=== PATIENT | female | born 1950 | race Caucasian/White ===

== ENCOUNTER 2018-03-23 19:16 | Inpatient (IN) | payer MEDICARE ==
--- NOTE | 2018-03-23 19:27 | ER Document Report ---
ED Neuro Symptoms/Deficit - General Chief Complaint: S/S of Possible Stroke Stated Complaint: POSSIBLE STROKE Time Seen by Provider: 03/23/18 19:26 Mode of Arrival: Medic Information source: Patient, Emergency Med Personnel, [facility] Records TRAVEL OUTSIDE OF THE [place] IN LAST 30 DAYS: No - HPI Patient complains to provider of: Other - 67-year-old woman presents for evaluation of weakness, facial droop, inability to move her right arms and leg and inability to feel her left arm and leg. She was found by neighbors after her was found wandering the neighborhood. There is an unknown last known normal time she is uncertain what time the symptoms started. Medications with this patient are Premarin as well as potassium. She denies any trauma, she denies any history of atrial fibrillation, denies any history of stroke in the past, no blood thinner use. Rest of history is limited secondary patient's dysarthria Past Medical History - General Information source: Patient, Emergency Med Personnel, [facility] Records Cannot obtain history due to: Altered mental status - Social History Smoking Status: Unknown if Ever Smoked Family History: None Review of Systems - Review of Systems -: Yes ROS unobtainable due to patient's medical condition Physical Exam - Vital signs Interpretation: Hypertensive - General General appearance: Anxious In distress: Mild - HEENT Head: Normocephalic, Other - Obvious facial droop with flattening of the nasolabial fold Extraocular movements intact: Yes Eyelashes: Normal Pupils: PERRL - Respiratory Respiratory status: No respiratory distress Chest status: Nontender Breath sounds: Normal Chest palpation: Normal - Cardiovascular Rhythm: Irregularly irregular Heart sounds: Normal auscultation Murmur: No - Abdominal Inspection: Normal Distension: No distension Tenderness: Nontender Organomegaly: No organomegaly - Back Back: Normal - Extremities General upper extremity: Other - 0 out of 5 strength right upper extremity 5 out of 5 strength left upper extremity General lower extremity: Other - 0 out of 5 strength right lower extremity 5 out of 5 strength left lower extremity Course - Re-evaluation Re-evalutation: This patient presented as a stroke activation from home with the last known normal that was unknown. She profound deficits, but was breathing spontaneously regarding appropriately made determination on emergent evaluation that patient was safe to transition to CT imaging. Accompany patient to CT scanner, performed an immediate NIH stroke scale and CT scan which is a 17 due to her profound deficits. Emergently called [facility] for consultation with neurologist, patient does not take any blood thinner, she does have an unknown last known well time. In discussion with Dr. PABLO who believes that patient should not be given TPA at this time. We will plan to obtain a CTA of the head as well as carotid arteries. Patient's also noted to be developing profound hypertension at this time, will initiate nicardipine infusion in case of intervention necessary. 03/23/18 20:06 [facility] neurologist discussed case Dr. Kincaid ALP again he has her CTA demonstrated what appears to be a left MCA territory lesion though the current symptoms seem to suggest a lower brainstem lesion. He declines at this time that the patient should undergo intervention or transport given the duration of symptoms of severity and her comorbidities. Given that she is on Premarin and is in atrial fibrillation which likely she developed an atrial clot. We will discuss this case with the on-call hospitalist for probable admission. Patient noted to be markedly tachycardic to the 120 range's, uptitrated patient' s nicardipine. Discussed case with on-call hospitalist who agrees at this time to admit this patient. Will defer administration of lytic therapy at this time given previously stated rationale. Patient will be admitted to the stepdown service for further management of symptoms and rate control. - Laboratory Result Diagrams: 03/23/18 22:32 03/23/18 19:28 Critical Care Note - Critical Care Note Total time excluding time spent on procedures (mins): 40 ED Alteplase Inc/Exc Criteria - Inclusion Criteria: 1: Patient presented to ED within 3 hours of acute ischemic stroke symptom onset ? -: No 2: Did baseline CT exclude intracranial hemorrhage and/or other risk factors? -: Yes 3: Is the age of the patient 18 years of age or greater? : If any of the above questions are answered "NO" then stop, patient is not a candidate for Alteplase, : If all of the above questions are answered "YES" then continue with Exclusion Criteria. - Exclusion Criteria: 1: Is there evidence of intracranial hemorrhage on baseline CT? -: No 2: Is there suspicion of subarachnoid hemorrhage (even if CT negative)? -: No 3: Is there a history of serious head trauma, recent previous stroke or CA within 3 months? -: No 4: Does the patient have a clinical presentation consistent with CA or post-CA pericarditis? 5: Is there history of intracranial hemorrhage? 6: On repeated measurement is Systolic BP greater than 185mmHg or Diastolic BP greater that 110 mmHg and is aggressive treatment needed to reduce blood pressure to these limits (e.g. constant infusion of an anti-hypertensive)? 7: Did the patient awake with stroke symptoms? 8: Has the patient had a lumbar puncture or an arterial puncture at a non- compressile site within 7 days? 9: With in the last 14 days did the patient have surgery or major trauma? 10: Is the patient or less than 2 weeks? 11: Was there any active bleeding or acute trauma? 12: Does the patient have intracranial neoplasm, arteriovenous malformation or aneurysm? 13: Does the patient have abnormal glucose (less than 50 or greater than 400mg/ dl)? Record glucose in Comment. 14: Patient has rapidly improving symptoms at the time Alteplase is to be Administered. 15: Does the patient have any risks for bleeding, including but not limited to: a.: Current use of Coumadin with PT greater than 15 seconds or INR greater than 1.7. b.: Current use of Pradaxa (Dabigatran). c.: Heparin administereed within the past 48 hours and PTT elevated. d.: Platelet count less than 100,000/mm. e.: Major surgery or serious trauma within 14 days. f.: Gastrointestinal or gynecological urinary bleeding within 14 days. g.: Myocardial Infarction (CA) within 3 months. : If the answer to any of the above questions is "YES" then stop, the patient is not a candidate for Alteplase. : If the answer to all of the above questions is "NO" then the patient may be eligible for the Administration of Alteplase. : If the patient is noted to have seizure activity at onset of Stroke symptoms; Consult Neurologist for further evaluation. - The patient is: -: Included and is eligible to receive Alteplase. *Initiate bed placement at higher level of care* --: No Reviewed risks & benefits of thrombolytic therapy: I have reviewed the risks and benefits of thrombolytic therapy with the patient and/or his/her family. -: Excluded and not eligible to receive Alteplase for the above exclusions. -: Excluded and not eligible to receive Alteplase for other reasons (specify in comments): - Diagnosis of TIA: -: Patient presented with transient symptoms that are now resolved and no other neurologic findings are currently present. List symptoms in comments. -: Patient is NOT a candidate for tPA. -: ____(put name in comment) has been consulted for admission and continued evaluation of risk factor assessment. ED NIH Stroke Scale - NIH Stroke Scale When completed:: Before Alteplase *: 1. NIH scale should be completed with appropriate accompanying assessment tools. *: 2. The NIH should reflect what the patient is capable of doing and should not be coached by the clinician. 1a. Level of Consciousness: 0=Alert;keenly responsive -: 1=Drowsy -: 2=Obtunded -: 3=Coma/unresponsive or reflex to noxious stimuli. 1a. Responses: 1 1b. Orientation Questions: a. What month is it? -: b. How old are you? -: 0=Answers both questions correctly. -: 1=Answers one question correctly or patient is intubated or has orotracheal trauma. -: 2=Answers neither question correctly. 1b. Responses: 1 1c. Response to commands: a. Open and close eyes? -: b. Ct Technologist and release hand? -: Credit is given despite weakness. Demonstration of task is permitted. Substitute command if hands cannot be used. -: 0=Performs both tasks correctly -: 1=Performs one task correctly -: 2=Performs neither task correctly 1c. Responses: 0 2. Gaze: Establish eye contact and instruct patient to "Follow my finger" -: 0=Normal -: 1=Partial gaze palsy. Gaze is abnormal in one or both eyes, but where forced deviation or total gaze paresis is not present. -: 2=Forced deviation or total gaze paresis. 2. Responses: 0 3. Visual Zheng: Sees fingers in all four quadrants. -: 0=No visual loss. -: 1=Partial hemianopsia. -: 2=Complete hemianopsia. -: 3=Bilateral hemianopsia (including Cortical blindness) 3. Responses: 0 4. Facial Movement: Instruct patient to: -: a. Show me your teeth -: b. Raise your eyebrows -: c. Close your eyes -: d. Smile -: 0=Normal symmetrical movement -: 1=Minor paralysis (flattened nasolabial fold, asymmetry on smiling). -: 2=Partial paralysis (total or near total paralysis of lower face). -: 3=Complete paralysis of upper and lower face 4. Responses: 2 5. Motor functions (left arm): Alternate sides and extend each arm with palms down (90 degrees if sitting or 45 degrees for supine). -: 0=No drift;limb holds for full 10 seconds. -: 1=Drift; limb holds but drifts down before full 10 seconds, but does not hit bed. -: 2=Some effort against gravity; limb cannot get to or maintain position. -: 3=No effort against gravity; limb falls. -: 4=No movement. -: UN=Amputation, joint fusion, explain in comments. 5. Responses (left arm): 0 5. Motor Functions (right arm): Alternate sides and extend each arm with palms down (90 degrees if sitting or 45 degrees for supine). -: 0=No drift;limb holds for full 10 seconds. -: 1=Drift; limb holds but drifts down before full 10 seconds, but does not hit bed. -: 2=Some effort against gravity; limb cannot get to or maintain position. -: 3=No effort against gravity; limb falls. -: 4=No movement. -: UN=Amputation, joint fusion, explain in comments. 5. Responses (right arm): 4 6. Motor Functions (left leg): With patient lying supine, alternate sides and extend each leg (30 degrees always while supine). -: 0=No drift, leg holds position for full 5 seconds -: 1=Drift; leg falls before full 5 seconds but does not hit bed. -: 2=Some effort against gravity, leg falls to bed but some effort against gravity. -: 3=No effort against gravity, leg falls to bed immediately. -: 4=No movement. -: UN=Amputation, joint fusion; explain in comments. 6. Responses (left leg): 0 6. Motor Functions (right leg): With patient lying supine, alternate sides and extend each leg (30 degrees always while supine). -: 0=No drift, leg holds position for full 5 seconds -: 1=Drift; leg falls before full 5 seconds but does not hit bed. -: 2=Some effort against gravity, leg falls to bed but some effort against gravity. -: 3=No effort against gravity, leg falls to bed immediately. -: 4=No movement. -: UN=Amputation, joint fusion; explain in comments. 6. Responses (right leg): 4 7. Limb Ataxia: With eyes open instruct patient to: -: a. "Touch your finger to your nose". -: b. "Touch your heel to your grissom" -: 0=Absent -: 1=Present in one limb. -: 2=Present in two limbs. -: UN=Amputation or joint fusion; explain in comments. 7. Responses: 1 7. If ataxia present choose as appropriate: Right leg 8. Sensory: Test sensation using pinprick or noxious stimuli. Test as many body parts as possible. -: 0=Normal;no sensory loss -: 1=Mile to moderate sensory loss (patient feels pin prick but is less sharp on affected side). -: 2=Severe or total sensory loss. 8. Responses: 2 9. Best Language: Instruct patient to: -: a. "Describe what you see in this picture." -: b. "Name the items in this picture." -: c. "Read these sentences." -: 0=No aphasia, normal -: 1=Mild to moderate aphasia. -: 2=Severe aphasia -: 3=Mute, global aphasia, no usable speech or auditory comprehension. 9. Responses: 1 10. Articulation, Dysarthia: Instruct patient to: -: "Read these words" or "Repeat these words" -: 0=Normal -: 1=Mild to moderate; patient may slur some words but can be understood without difficulty. -: 2=Severe; patients speech so slurred as to be unintelligible in the absence of dysphasia. -: UN=Intubated or other physical barrier, explain in comments. 10. Responses: 2 11. Extinction or inattention: 0=No abnormality -: 1= Visual, tactile, auditory, spatial, or personal inattention or extinction to bilateral simulation in one or the sensory modalities. -: 2=Profound zakia-inattention or zakia-inattention to more than one modality; does not recognize own hand. 11. Responses: 0 Total Score: 18 Discharge - Discharge Clinical Impression: Atrial fibrillation with RVR CVA (cerebral vascular accident) Qualifiers: CVA mechanism: embolism Precerebral and cerebral artery: unspecified precerebral artery Qualified Code(s): I63.10 - Cerebral infarction due to embolism of unspecified precerebral artery Afib Qualifiers: Atrial fibrillation type: unspecified Qualified Code(s): I48.91 - Unspecified atrial fibrillation Condition: Serious Disposition: ADMITTED INPATIENT Admitting Provider: Hospitalist Unit Admitted: IMCU Referrals: SUSAN MCMILLAN MD [HONORARY] - Follow up as needed
[2018-03-23 19:37] LABS: ABSOLUTE BASOPHILS # (AUTO) 0.1 10^3/uL (0.0-0.2); ABSOLUTE EOSINOPHILS # (AUTO) 0.2 10^3/uL (0.0-0.6); ABSOLUTE LYMPHOCYTES (AUTO) 1.2 10^3/uL (0.5-4.7); ABSOLUTE MONOCYTES (AUTO) 0.5 10^3/uL (0.1-1.4); ABSOLUTE NEUT (AUTO) 6.6 10^3/uL (1.7-8.2); BASOPHILS % (AUTO) 0.6 % (0-2); EOSINOPHILS % (AUTO) 2.1 % (0-6); HEMATOCRIT 39.5 % (36.0-47.0); HEMOGLOBIN 13.5 g/dL (12.0-15.5); LYMPHOCYTES % (AUTO) 13.8 % (13-45); MEAN CORPUSCULAR HEMOGLOBIN 30.3 pg (27.0-33.4); MEAN CORPUSCULAR HGB CONC 34.2 g/dL (32.0-36.0); MEAN CORPUSCULAR VOLUME 89 fl (80-97); MONOCYTES % (AUTO) 5.4 % (3-13); PLATELET COUNT 253 10^3/uL (150-450); RED BLOOD COUNT 4.46 10^6/uL (3.72-5.28); RED CELL DISTRIBUTION WIDTH 13.3 % (11.5-14.0); SEGMENTED NEUTROPHILS % (AUTO) 78.1 % (42-78); TOTAL CELLS COUNTED % (AUTO) 100 %; WHITE BLOOD COUNT 8.5 10^3/uL (4.0-10.5)
[2018-03-23 19:41] LABS: INTERNATIONAL RATION (INR) 0.99; PROTHROMBIN TIME 13.6 SEC (11.4-15.4)
[2018-03-23 19:42] LABS: PARTIAL THROMBOPLASTIN TIME 26.9 SEC (23.5-35.8)
--- NOTE | 2018-03-23 19:46 | RADIOLOGY REPORT (SQ) ---
EXAM DESCRIPTION: CT HEAD WITHOUT COMPLETED DATE/TIME: 03/23/2018 7:23 pm REASON FOR STUDY: bed 2 stroke alert COMPARISON: None. TECHNIQUE: Axial images acquired through the brain without intravenous contrast. Images reviewed wi th bone, brain and subdural windows. Additional sagittal and coronal reconstructions were generated. Images stored on PACS. All CT scanners at this facility use dose modulation, iterative reconstruction, and/or weight based d osing when appropriate to reduce radiation dose to as low as reasonably achievable (ALARA). [facility]: Dose Right [facility]: CareDose [facility]: Dose Right [facility]: Teradose 4D [facility]: [employer] RADIATION DOSE: CT Rad equipment meets quality standard of care and radiation dose reduction techniq ues were employed. CTDIvol: 55.2 mGy. DLP: 1029 mGy-cm. mGy. LIMITATIONS: None. FINDINGS: VENTRICLES: Normal size and contour. CEREBRUM: No masses. No hemorrhage. No midline shift. No evidence for acute infarction. Normal gra y/white matter differentiation. No areas of low density in the white matter. CEREBELLUM: No masses. No hemorrhage. No alteration of density. No evidence for acute infarction. EXTRAAXIAL SPACES: No fluid collections. No masses. ORBITS AND GLOBE: No intra- or extraconal masses. Normal contour of globe without masses. CALVARIUM: No fracture. PARANASAL SINUSES: No fluid or mucosal thickening. SOFT TISSUES: No mass or hematoma. OTHER: No other significant finding. IMPRESSION: NORMAL BRAIN CT WITHOUT CONTRAST. EVIDENCE OF ACUTE STROKE: NO. COMMENT: Findings were discussed with Dr. Nugent at 1941 hours on this date. Quality ID # [id number]: Final reports with documentation of one or more dose reduction techniques (e.g., Au tomated exposure control, adjustment of the mA and/or kV according to patient size, use of iterative reconstruction technique) TECHNICAL DOCUMENTATION: JOB ID: [id number] [employer]- All Rights Reserved Reading location - IP/workstation name: [email or web address]
--- NOTE | 2018-03-23 19:47 | RADIOLOGY REPORT (SQ) ---
EXAM DESCRIPTION: CHEST SINGLE VIEW COMPLETED DATE/TIME: 03/23/2018 7:30 pm REASON FOR STUDY: bed 2 stroke alert COMPARISON: 06/01/2007 EXAM PARAMETERS: NUMBER OF VIEWS: One view. TECHNIQUE: Single frontal radiographic view of the chest acquired. RADIATION DOSE: NA LIMITATIONS: None. FINDINGS: LUNGS AND PLEURA: No opacities, masses or pneumothorax. No pleural effusion. MEDIASTINUM AND HILAR STRUCTURES: No masses. Contour normal. HEART AND VASCULAR STRUCTURES: Cardiomegaly. No pulmonary edema. BONES: No acute findings. HARDWARE: None in the chest. OTHER: No other significant finding. IMPRESSION: Cardiomegaly without pulmonary edema. TECHNICAL DOCUMENTATION: JOB ID: [id number] [employer]- All Rights Reserved Reading location - IP/workstation name: [email or web address]
[2018-03-23 19:53] LABS: ALANINE AMINOTRANSFERASE 25 U/L (9-52); ALBUMIN 4.5 g/dL (3.5-5.0); ALKALINE PHOSPHATASE 122 U/L (38-126); ANION GAP 11 (5-19); ASPARTATE AMINO TRANSFERASE 25 U/L (14-36); BILIRUBIN,DIRECT 0.5 mg/dL (0.0-0.4); BLOOD UREA NITROGEN 11 mg/dL (7-20); CALCIUM 9.8 mg/dL (8.4-10.2); CARBON DIOXIDE 27 mmol/L (22-30); CHLORIDE 98 mmol/L (98-107); CREATINE KINASE 163 U/L (30-135); GLUCOSE 117 mg/dL (75-110); POTASSIUM 4.6 mmol/L (3.6-5.0); SODIUM 135.6 mmol/L (137-145); TOTAL PROTEIN 7.3 g/dL (6.3-8.2)
[2018-03-23 20:03] LABS: CREATINE KINASE MB 3.11 ng/mL (<4.55)
[2018-03-23 20:06] LABS: TROPONIN I < 0.012 ng/mL
--- NOTE | 2018-03-23 20:46 | RADIOLOGY REPORT (SQ) ---
EXAM DESCRIPTION: CTA HEAD COMPLETED DATE/TIME: 03/23/2018 8:34 pm REASON FOR STUDY: query large vessel occlusion COMPARISON: None. TECHNIQUE: Post IV contrast scanning, thin section axial imaging through the brain to evaluate the a rterial structures. Source and MIP images are saved and reviewed on PACS. Advanced 3D imaging as volume-rendering, MIPs, SSD performed? yes All CT scanners at this facility use dose modulation, iterative reconstruction, and/or weight based d osing when appropriate to reduce radiation dose to as low as reasonably achievable (ALARA). [facility]: Dose Right [facility]: CareDose [facility]: Dose Right [facility]: Teradose 4D [facility]: [employer] CONTRAST TYPE AND DOSE: contrast/concentration: Isovue 350.00 mg/ml; Total Contrast Delivered: 70.0 ml; Total Saline Delivered: 75.0 ml RENAL FUNCTION: BUN 11 creatinine 0.84 LIMITATIONS: None. FINDINGS: [place] OF CHILD: There appears to be at least partial occlusion of the left middle cerebr al artery. Some of the distal branches of the middle cerebral artery are opacified. See image 105 s eries 3. See image 42 series 204. POSTERIOR CIRCULATION: The distal vertebral arteries are patent as is the basilar artery. No aneurysm . BRAIN: No gross enhancing lesions as visualized. The superior cerebral hemispheres are not included in the field of view. BONES: Intact as visualized. SINUSES: No fluid or mucosal thickening. OTHER: No other significant finding. 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 TECHNICAL DOCUMENTATION: JOB ID: [id number] Quality ID # [id number]: Final reports with documentation of one or more dose reduction techniques (e.g., Au tomated exposure control, adjustment of the mA and/or kV according to patient size, use of iterative reconstruction technique) 2010 [employer]- All Rights Reserved Reading location - IP/workstation name: [email or web address]
--- NOTE | 2018-03-23 20:50 | RADIOLOGY REPORT (SQ) ---
EXAM DESCRIPTION: CTA NECK COMPLETED DATE/TIME: 03/23/2018 8:34 pm REASON FOR STUDY: stroke COMPARISON: None. TECHNIQUE: Axial dynamic scanning technique with dynamic contrast enhancement through the extra-crane oiler nial carotid and vertebral arteries. Multiplanar reconstruction. 3-D MIPS and Volume-rendered imag es acquired at the workstation and saved to PACS. Images are reviewed in soft tissue, bone, lung w indows. All CT scanners at this facility use dose modulation, iterative reconstruction, and/or weight based d osing when appropriate to reduce radiation dose to as low as reasonably achievable (ALARA). [facility]: Dose Right [facility]: CareDose [facility]: Dose Right [facility]: Teradose 4D [facility]: [employer] CONTRAST TYPE AND DOSE: 70 mL Omnipaque 350- low osmolar. RENAL FUNCTION: BUN 11 creatinine 0.8 LIMITATIONS: None. FINDINGS: AORTIC ARCH: The left carotid appears to arise from the brachiocephalic trunk. RIGHT CAROTIDS: Patent common, internal and external carotid arteries without suggestion of significa nt stenosis or irregular plaque. No dissection. RIGHT VERTEBRAL: Patent. No dissection. LEFT CAROTIDS: Patent common, internal and external carotid arteries without suggestion of significan t stenosis or irregular plaque. No dissection. LEFT VERTEBRAL: Patent. No dissection. OTHER: No other significant finding. OTHER: 3-D reconstructions confirm findings. IMPRESSION: The left carotid artery appears to arise from the brachiocephalic trunk. No significant carotid occlusion is seen. COMMENT: Quality ID #[id number]: Measurements of distal internal carotid diameter were used as the denomina tor for stenosis measurement. TECHNICAL DOCUMENTATION: JOB ID: [id number] Quality ID # 436: Final reports with documentation of one or more dose reduction techniques (e.g., Au tomated exposure control, adjustment of the mA and/or kV according to patient size, use of iterative reconstruction technique) 2010 [employer]- All Rights Reserved Reading location - IP/workstation name: [email or web address]
[2018-03-23] MEDS ORDERED: METOPROLOL TARTRATE PF/INJ 5 MG/5 ML SDV IV ONE (21:03)
[2018-03-23] MEDS ORDERED: LABETALOL HCL INJ 20 MG/4 ML DISP.SYRIN IV ONE (21:04)
[2018-03-23] MEDS ORDERED: NICARDIPINE HCL RTU, ISO-OS 20 MG/200 ML RTUINJ IV ONE (21:12)
[2018-03-23] MEDS ORDERED: NICARDIPINE HCL RTU, ISO-OS 20 MG/200 ML RTUINJ IV PRN (21:14)
[2018-03-23] MEDS ORDERED: HEPARIN SODIUM,PORCINE/D5W 25,000 UNIT/250 ML RTUINJ IV PRN (21:30)
[2018-03-23] MEDS ORDERED: ATORVASTATIN CALCIUM 80 MG TABLET PO ONE (22:20)
[2018-03-23] MEDS ORDERED: HEPARIN SOD (PORCINE) 1,000 UNIT/ML 10 ML VIAL IV ONE (22:20)
[2018-03-23 22:43] LABS: ABSOLUTE EOSINOPHILS # (AUTO) 0.1 10^3/uL (0.0-0.6); ABSOLUTE MONOCYTES (AUTO) 0.5 10^3/uL (0.1-1.4); ABSOLUTE NEUT (AUTO) 8.4 10^3/uL (1.7-8.2); BASOPHILS % (AUTO) 0.5 % (0-2); EOSINOPHILS % (AUTO) 0.9 % (0-6); HEMATOCRIT 40.1 % (36.0-47.0); HEMOGLOBIN 13.8 g/dL (12.0-15.5); MEAN CORPUSCULAR HEMOGLOBIN 30.6 pg (27.0-33.4); MEAN CORPUSCULAR HGB CONC 34.5 g/dL (32.0-36.0); MEAN CORPUSCULAR VOLUME 89 fl (80-97); MONOCYTES % (AUTO) 5.4 % (3-13); PLATELET COUNT 262 10^3/uL (150-450); RED BLOOD COUNT 4.52 10^6/uL (3.72-5.28); RED CELL DISTRIBUTION WIDTH 13.2 % (11.5-14.0); SEGMENTED NEUTROPHILS % (AUTO) 83.2 % (42-78); TOTAL CELLS COUNTED % (AUTO) 100 %; WHITE BLOOD COUNT 10.1 10^3/uL (4.0-10.5)
[2018-03-23 22:47] LABS: INTERNATIONAL RATION (INR) 0.99; PROTHROMBIN TIME 13.6 SEC (11.4-15.4)
[2018-03-23 22:48] LABS: PARTIAL THROMBOPLASTIN TIME 29.4 SEC (23.5-35.8)
[2018-03-23] MEDS: ATORVASTATIN CALCIUM 80 MG TABLET PO SCH (23:04)
[2018-03-24] MEDS ORDERED: HEPARIN SOD (PORCINE) 1,000 UNIT/ML 10 ML VIAL IV PRN (00:30)
[2018-03-24 00:40] LABS: CREATINE KINASE MB 3.12 ng/mL (<4.55); TROPONIN I < 0.012 ng/mL
[2018-03-24] MEDS: METOPROLOL TARTRATE PF/INJ 5 MG/5 ML SDV IV PRN (04:38)
[2018-03-24 04:49] LABS: HEMATOCRIT 40.2 % (36.0-47.0); HEMOGLOBIN 13.9 g/dL (12.0-15.5); MEAN CORPUSCULAR HEMOGLOBIN 30.5 pg (27.0-33.4); MEAN CORPUSCULAR HGB CONC 34.6 g/dL (32.0-36.0); MEAN CORPUSCULAR VOLUME 88 fl (80-97); PLATELET COUNT 247 10^3/uL (150-450); RED BLOOD COUNT 4.55 10^6/uL (3.72-5.28); RED CELL DISTRIBUTION WIDTH 13.1 % (11.5-14.0)
[2018-03-24] MEDS ORDERED: DILTIAZEM HCL/D5W 125 MG/125 ML RTUINJ IV PRN (04:49)
--- NOTE | 2018-03-24 05:00 | PDOC H&P ---
History of Present Illness Admission Date/PCP: 03/23/18 23:19 Patient complains of: Right-sided weakness and difficulty with speech History of Present Illness: SCOTTY MCLEOD is a 67 year old female with unclear past medical history who is found by neighbors on the ground with difficulty with speech, Facial droop, right arm and leg weakness, left arm and leg numbness. Her with dementia was found confused walking alone in the neighborhood. They are both brought to the emergency room. She is found to have persistent symptoms as above and atrial fibrillation with RVR. Initial imaging is unremarkable. Given the unclear time of onset she is not a candidate for thrombolytics and is referred to the hospitalist for admission. She denies history of palpitations, chest pain or shortness of breath. Additional history is limited secondary to severe expressive aphasia. Past Medical History Cardiac Medical History: Reports: Hyperlipidema, Hypertension Social History Information Source: Patient, Emergency Med Personnel Lives with: Spouse/Significant other Smoking Status: Never Smoker Frequency of Alcohol Use: None Hx Recreational Drug Use: No Drugs: None Hx Prescription Drug Abuse: No - Advance Directive Resuscitation Status: Full Code Family History Family History: Other - Unobtainable Parental Family History Reviewed: Yes Children Family History Reviewed: Yes Sibling(s) Family History Reviewed.: Yes Review of Systems ROS unobtainable: Other - Unobtainable secondary to expressive aphasia Physical Exam Vital Signs: Temp Pulse Resp BP Pulse Ox 98.3 F 123 H 21 H 155/99 H 100 03/24/18 03:04 03/24/18 03:06 03/24/18 03:06 03/24/18 03:06 03/24/18 03:06 General appearance: PRESENT: cooperative, disheveled, severe distress Head exam: PRESENT: atraumatic, normocephalic Eye exam: PRESENT: conjunctiva pink, EOMI, PERRLA. ABSENT: scleral icterus Ear exam: PRESENT: normal external ear exam Mouth exam: PRESENT: moist, tongue midline Neck exam: ABSENT: carotid bruit, JVD, lymphadenopathy, thyromegaly Respiratory exam: PRESENT: clear to auscultation jose, tachypnea. ABSENT: rales , rhonchi, wheezes Cardiovascular exam: PRESENT: irregular rhythm, +S1, +S2, tachycardia. ABSENT: bradycardia, clicks, gallop Pulses: PRESENT: normal dorsalis pedis pul Vascular exam: PRESENT: normal capillary refill GI/Abdominal exam: PRESENT: normal bowel sounds, soft. ABSENT: distended, guarding, mass, organolmegaly, rebound, tenderness Rectal exam: PRESENT: deferred Extremities exam: PRESENT: full ROM, other - Bruising of all 4 extremities. ABSENT: calf tenderness, clubbing, pedal edema Musculoskeletal exam: PRESENT: other - Ecchymosis of all 4 extremities. ABSENT : ambulatory, deformity, dislocation Neurological exam: PRESENT: alert, altered, awake, oriented to person, oriented to place, CN II-XII grossly intact, motor sensory deficit, aphasic - Expressive. ABSENT: oriented to time, oriented to situation Psychiatric exam: PRESENT: appropriate affect, normal mood. ABSENT: homicidal ideation, suicidal ideation Skin exam: PRESENT: dry, intact, warm. ABSENT: cyanosis, rash Results Laboratory Results: 03/24/18 03:43 03/24/18 03:43 WBC 10.0 RBC 4.55 Hgb 13.9 Hct 40.2 MCV 88 MCH 30.5 MCHC 34.6 RDW 13.1 Plt Count 247 Impressions: Chest X-Ray 03/23/18 19:17 IMPRESSION: Cardiomegaly without pulmonary edema. Head CT 03/23/18 19:17 IMPRESSION: NORMAL BRAIN CT WITHOUT CONTRAST. EVIDENCE OF ACUTE STROKE: NO. Head CTA 03/23/18 20:01 IMPRESSION: There appears to be least partial occlusion of the left middle cerebral artery as described. Neck CTA 03/23/18 20:12 IMPRESSION: The left carotid artery appears to arise from the brachiocephalic trunk. No significant carotid occlusion is seen. Assessment & Plan - Diagnosis (1) Atrial fibrillation with RVR Is this a current diagnosis for this admission?: Yes Plan: IMCU admission, IV Cardizem, heparin protocol. Follow-up cardiac enzymes and 2D echo. (2) CVA (cerebral vascular accident) Qualifiers: CVA mechanism: embolism Precerebral and cerebral artery: unspecified precerebral artery Qualified Code(s): I63.10 - Cerebral infarction due to embolism of unspecified precerebral artery Is this a current diagnosis for this admission?: Yes Plan: CVA care set, permissive hypertension, follow-up MRI, echocardiogram and carotid Doppler. - Time Time Spent: 50 to 70 Minutes - Inpatient Certification Medical Necessity: Need Close Monitoring Due to Risk of Patient Decompensation
[2018-03-24 05:04] LABS: ANION GAP 14 (5-19); BLOOD UREA NITROGEN 8 mg/dL (7-20); CALCIUM 9.8 mg/dL (8.4-10.2); CARBON DIOXIDE 24 mmol/L (22-30); CHLORIDE 98 mmol/L (98-107); CHOLESTEROL 197.62 mg/dL (0-200); GLUCOSE 118 mg/dL (75-110); POTASSIUM 4.4 mmol/L (3.6-5.0); SODIUM 135.8 mmol/L (137-145); TRIGLYCERIDES 77 mg/dL (<150)
[2018-03-24 05:10] LABS: CREATINE KINASE MB 2.54 ng/mL (<4.55)
[2018-03-24 05:14] LABS: DIRECT LDL 119 mg/dL (<100); TROPONIN I < 0.012 ng/mL
[2018-03-24] MEDS ORDERED: DILTIAZEM HCL/D5W 125 MG/125 ML RTUINJ IV ONE (05:26)
[2018-03-24] MEDS: NORMAL SALINE 1000 ML 1,000 ML IV PRN ×2 (05:32→10:06)
--- NOTE | 2018-03-24 07:55 | EKG REPORT ---
SEVERITY:- ABNORMAL ECG - ATRIAL FLUTTER, A-RATE 294 MULTIFORM VENTRICULAR PREMATURE COMPLEXES LOW VOLTAGE IN FRONTAL LEADS CONSIDER ANTEROSEPTAL INFARCT : Confirmed by: Savi Wells MD 24-Mar-2018 07:55:08
[2018-03-24] MEDS ORDERED: ASPIRIN 300 MG SUPP, RECTAL PR SCH (10:00)
[2018-03-24 10:33] LABS: CREATINE KINASE MB 2.74 ng/mL (<4.55)
[2018-03-24 10:36] LABS: TROPONIN I < 0.012 ng/mL
[2018-03-24] MEDS: OXYCODONE HCL IR 5 MG TABLET PO SCH ×2 (12:25→21:08)
[2018-03-24] MEDS: DILTIAZEM HCL 30 MG TABLET PO SCH ×3 (12:32→23:51)
[2018-03-24] MEDS ORDERED: ASPIRIN 81 MG TABLET, CHEWABLE PO ONE (12:40)
--- NOTE | 2018-03-24 14:01 | Physician Advisory Note ---
Physician Advisor ProgressNote .: Pursuant to the plan for [facility], I have reviewed the medical record for this patient. Physician Advisor Statement: Please consider documenting, if you agree: 1. "Acute Lt MCA embolic CVA with cerebral infarction, with Rt dominant hemiparesis, [resolved or improved or persistent] & dysphagia [resolved or improved or persistent]" & receptive/expressive aphasia [resolved or improved or persistent]" 2. H&P indicates pt's CN II-XII intact, but that pt had facial droop - please clarify this potential contradiction in documentation. Thanks! CK
[2018-03-24] MEDS: APIXABAN 5 MG TABLET PO SCH ×2 (14:17→21:08)
[2018-03-24] MEDS: LORAZEPAM 0.5 MG TABLET PO SCH ×2 (14:17→21:08)
[2018-03-24] MEDS: FLUTICASONE NASAL SPRAY 50 MCG/SPRY 120 SPRAY/16 GM NASL SCH (14:18)
[2018-03-24 18:54] LABS: PROTHROMBIN TIME 15.8 SEC (11.4-15.4)
[2018-03-24 18:55] LABS: PARTIAL THROMBOPLASTIN TIME 31.1 SEC (23.5-35.8)
[2018-03-24] MEDS ORDERED: LORAZEPAM 0.5 MG TABLET PO PRN (19:29)
--- NOTE | 2018-03-24 19:33 | PDOC PROGRESS REPORT ---
Subjective Progress Note for:: 03/24/18 Subjective:: The patient is a 67-year-old female with a limited past medical history secondary to expressive aphasia, but known to have chronic pain with opiate dependence, benzodiazepine dependence, hyperlipidemia and hypertension who was admitted 03/23/18 with left MCA distribution CVA. The patient was seen on morning rounds with her present and seen again this afternoon when her son arrived. The patient appears to have improved significantly from the time of admission by the [employer] Sewing Machine Operator. The patient has passed her swallow evaluation and although continues to have expressive aphasia , is conversational and able to express her needs. She denies headache, dizziness, blurred vision, chest pain, palpitations, dyspnea, orthopnea, orthopedic pain (worse than her baseline), abdominal pain, nausea or vomiting. She has no questions or concerns. The son is understandably distressed by the patient's CVA; he is able to care for his father who has been taken home by his and son. He has many questions with regard to obtaining assistance in caring for both of his parents. He does request to speak with discharge planning has no other specific questions at this time. No concerns per nursing. Reason For Visit: ACUTE CVA AFIB Physical Exam Vital Signs: Temp Pulse Resp BP Pulse Ox 98.6 F 101 H 17 169/84 H 98 03/24/18 15:16 03/24/18 16:00 03/24/18 16:00 03/24/18 16:00 03/24/18 16:00 Intake & Output 03/23/18 03/24/18 03/25/18 06:59 06:59 06:59 Intake Total 65 1418 Balance 65 1418 Weight 88.6 kg General appearance: PRESENT: no acute distress, cooperative, well-developed, well-nourished - Overweight Head exam: PRESENT: atraumatic, normocephalic Eye exam: PRESENT: conjunctiva pink, EOMI, PERRLA. ABSENT: scleral icterus Ear exam: PRESENT: normal external ear exam Mouth exam: PRESENT: moist, tongue midline Neck exam: ABSENT: carotid bruit, JVD, lymphadenopathy, thyromegaly Respiratory exam: PRESENT: clear to auscultation jose, symmetrical, unlabored. ABSENT: rales, rhonchi, wheezes Cardiovascular exam: PRESENT: irregular rhythm, +S1, +S2. ABSENT: diastolic murmur, rubs, systolic murmur Pulses: PRESENT: normal dorsalis pedis pul Vascular exam: PRESENT: normal capillary refill GI/Abdominal exam: PRESENT: normal bowel sounds, soft. ABSENT: distended, guarding, mass, organolmegaly, rebound, tenderness Rectal exam: PRESENT: deferred Extremities exam: PRESENT: full ROM. ABSENT: calf tenderness, clubbing, pedal edema Musculoskeletal exam: PRESENT: other - Kyphosis Neurological exam: PRESENT: alert, awake, oriented to person, CN II-XII grossly intact - Slight right-sided weakness; upper greater than lower extremity. Slight slurred speech with continued expressive aphasia, no facial droop noted at this time., other - The patient is alert and oriented x4; although has expressive aphasia with slight slurred speach and stutter. She was unable to state hospital, but appropriately named [place]. Unable to state year, but able to identify [employer] (self corrected from [place]). Follows all comands.. ABSENT: motor sensory deficit Psychiatric exam: PRESENT: appropriate affect, normal mood. ABSENT: homicidal ideation, suicidal ideation Skin exam: PRESENT: dry, intact, warm. ABSENT: cyanosis, rash Results Laboratory Results: 03/24/18 03:43 03/24/18 03:43 03/24/18 03/24/18 03:43 03:43 WBC 10.0 RBC 4.55 Hgb 13.9 Hct 40.2 MCV 88 MCH 30.5 MCHC 34.6 RDW 13.1 Plt Count 247 Sodium 135.8 L Potassium 4.4 Chloride 98 Carbon Dioxide 24 Anion Gap 14 BUN 8 Creatinine 0.64 Est GFR ( Amer) > 60 Est GFR (Non-Af Amer) > 60 Glucose 118 H Calcium 9.8 Triglycerides 77 Cholesterol 197.62 LDL Cholesterol Direct 119 H VLDL Cholesterol 15.0 HDL Cholesterol 68 03/24/18 03/24/18 03/24/18 03:43 03:43 09:25 Creatine Kinase 135 157 H CK-MB (CK-2) 2.54 Troponin I < 0.012 03/24/18 09:25 Creatine Kinase CK-MB (CK-2) 2.74 Troponin I < 0.012 Impressions: Chest X-Ray 03/23/18 19:17 IMPRESSION: Cardiomegaly without pulmonary edema. Head CT 03/23/18 19:17 IMPRESSION: NORMAL BRAIN CT WITHOUT CONTRAST. EVIDENCE OF ACUTE STROKE: NO. Head CTA 03/23/18 20:01 IMPRESSION: There appears to be least partial occlusion of the left middle cerebral artery as described. Neck CTA 03/23/18 20:12 IMPRESSION: The left carotid artery appears to arise from the brachiocephalic trunk. No significant carotid occlusion is seen. Assessment & Plan - Diagnosis (1) CVA (cerebral vascular accident) Qualifiers: CVA mechanism: embolism Precerebral and cerebral artery: middle cerebral artery Laterality of affected vessel: left Qualified Code(s): I63.412 - Cerebral infarction due to embolism of left middle cerebral artery Is this a current diagnosis for this admission?: Yes Plan: Patient presented with acute CVA symptoms found to have a left MCA distribution CVA on CT; likely embolic secondary to new onset atrial fibrillation with RVR. Noncontrasted head CT normal and negative for acute stroke. CTA of the head and neck revealed partial occlusion of the left MCA Neck CTA is benign. Echocardiogram is pending. Carotid Dopplers are pending. Head MRI is pending. Lipid panel is acceptable, A1c is 5.6%. Patient was admitted to [facility] on continuous cardiac telemetry. Speech therapy has cleared her for regular consistency and thin liquids. PT/OT evaluations with recommendations for continued rehab upon discharge; will consult Dr. Huerta to evaluate for inpatient acute rehabilitation suitability. Discharge planning has been consulted; fortunately, the patient has been has been successfully placed with his son and is no longer a safety concern. Patient is placed on daily aspirin and statin therapy. She was initially placed on heparin drip secondary to atrial fibrillation with RVR; she is now been transitioned to p.o. Eliquis. (2) Atrial fibrillation with RVR Is this a current diagnosis for this admission?: Yes Plan: The patient was found to be in atrial fibrillation with RVR; heart rate was in the 120s. She was admitted on continuous cardiac telemetry and placed on a diltiazem drip. Rate control was achieved with average of 5 mg/h. TSH is normal. She has been transitioned to p.o. diltiazem; 30 mg p.o. every 6 hours. We will continue to monitor on cardiac telemetry and further adjust dose as necessary. She is placed on Eliquis 5 mg p.o. twice daily secondary to CVA. Continue daily aspirin therapy. (3) Hypertension Is this a current diagnosis for this admission?: Yes Plan: The patient endorses a history of hypertension; appears to be on clonidine as an outpatient medication. She has been placed on diltiazem for A. fib with RVR; holding clonidine while making diltiazem adjustments for rate control. Allowing for permissive hypertension; blood pressures today 160/90. Will begin adjusting diltiazem tomorrow for blood pressure goal as well. We will try to limit number of medications/frequency of pills to improve patient understanding and compliance following discharge. (4) GERD (gastroesophageal reflux disease) Is this a current diagnosis for this admission?: Yes Plan: Prevacid daily. (5) Opiate dependence, continuous Is this a current diagnosis for this admission?: Yes Plan: [facility]. The [place] controlled substance database was reviewed; the patient consistently receives refills of Nucynta ER 100 mg twice daily and oxycodone 10/ 325 3 times daily as needed. The patient's Nucynta and oxycodone are resumed at half dosing; this was discussed with the patient. She understands that the reduced dosing was to prevent sedation and allow for accurate neuro status checks. Will adjust titrate medications up to her home dose as needed for adequate pain control. (6) Benzodiazepine dependence, continuous Is this a current diagnosis for this admission?: Yes Plan: The [place] controlled substance database was reviewed; the patient is refills lorazepam 1 mg. Medication reconciliation confirms the patient takes 2 mg qHS and an additional 1 mg up to three times daily as needed. The patient is unable to confirm the exact amount that she utilizes on average, however, her prescription refills do not allow for a total daily dose of 5 mg on a regular basis. The patient is provided Ativan 0.5 mg scheduled every 8 hours for withdrawal prevention. She is provided an additional 0.5 mg as needed every 8 hours for anxiety. - Time Time Spent with patient: 15-24 minutes Medications reviewed and adjusted accordingly: Yes Anticipated discharge: Acute Rehab Within: within 48 hours - Inpatient Certification Based on my medical assessment, after consideration of the patient's comorbidities, presenting symptoms, or acuity I expect that the services needed warrant INPATIENT care.: Yes I certify that my determination is in accordance with my understanding of Medicare's requirements for reasonable and necessary INPATIENT services [42 CFR 412.3e].: Yes Medical Necessity: Need For Continuous Telemetry Monitoring
[2018-03-24] MEDS: ATORVASTATIN CALCIUM 80 MG TABLET PO SCH (21:07)
[2018-03-24] MEDS ORDERED: TAPENTADOL HCL 50 MG PO SCH (22:00)
[2018-03-24] MEDS ORDERED: GABAPENTIN 100 MG CAPSULE PO ONE (23:40)
[2018-03-25] MEDS: METOPROLOL TARTRATE PF/INJ 5 MG/5 ML SDV IV PRN (04:53)
[2018-03-25 04:57] LABS: ANION GAP 14 (5-19); BLOOD UREA NITROGEN 14 mg/dL (7-20); CALCIUM 9.6 mg/dL (8.4-10.2); CARBON DIOXIDE 22 mmol/L (22-30); CHLORIDE 100 mmol/L (98-107); GLUCOSE 112 mg/dL (75-110); POTASSIUM 3.8 mmol/L (3.6-5.0); SODIUM 135.5 mmol/L (137-145)
[2018-03-25] MEDS: DILTIAZEM HCL 30 MG TABLET PO SCH (05:29)
[2018-03-25] MEDS: LANSOPRAZOLE 30 MG TAB.RAP.DR PO SCH (05:30)
[2018-03-25] MEDS: LORAZEPAM 0.5 MG TABLET PO SCH ×3 (05:30→21:00)
[2018-03-25] MEDS ORDERED: HYDRALAZINE HCL INJ/PF 20 MG/1 ML SDV IV PRN (06:22)
[2018-03-25] MEDS: FLUTICASONE NASAL SPRAY 50 MCG/SPRY 120 SPRAY/16 GM NASL SCH (09:45)
[2018-03-25] MEDS: APIXABAN 5 MG TABLET PO SCH (09:46)
[2018-03-25] MEDS: OXYCODONE HCL IR 5 MG TABLET PO SCH ×2 (09:46→20:59)
[2018-03-25] MEDS: ASPIRIN 81 MG TABLET, CHEWABLE PO SCH (09:46)
[2018-03-25] MEDS ORDERED: (PENDING PHARMACY ID) (Rabeprazole Sodium [Aciphex] 20 MG) PO SCH (10:00)
[2018-03-25] MEDS: DILTIAZEM HCL 60 MG TABLET PO SCH ×2 (12:41→17:25)
--- NOTE | 2018-03-25 13:13 | PDOC PROGRESS REPORT ---
Subjective Progress Note for:: 03/25/18 Subjective:: The patient is a 67-year-old female with a limited past medical history secondary to expressive aphasia, but known to have chronic pain with opiate dependence, benzodiazepine dependence, hyperlipidemia and hypertension who was admitted 03/23/18 with left MCA distribution CVA. The patient was seen on morning rounds with her 2 daughters present. The patient is awake, alert, oriented x4. She continues to have slight expressive aphasia, but is fully conversational and able to answer all questions clearly. She denies headache, dizziness, blurred vision, chest pain, palpitations, dyspnea, orthopnea, orthopedic pain (worse than her baseline), abdominal pain, nausea or vomiting. She has no questions or concerns. The patient's daughter is asked to speak with me privately; she informs me that the patient has a long-standing history of alcohol abuse and dependence. She reports that to her knowledge her mother drinks several "hard drinks daily." She is concerned about the possibility of alcohol withdrawal, opiate and benzodiazepine dependence. She asks me to assist with weaning as much as is appropriate in the inpatient setting. All questions and concerns were addressed. No concerns per nursing. Reason For Visit: ACUTE CVA AFIB Physical Exam Vital Signs: Temp Pulse Resp BP Pulse Ox 97.4 F 93 16 147/77 H 95 03/25/18 11:40 03/25/18 12:00 03/25/18 12:00 03/25/18 12:00 03/25/18 12:00 Intake & Output 03/24/18 03/25/18 03/26/18 06:59 06:59 06:59 Intake Total 65 1418 236 Output Total 2 Balance 65 1418 234 Weight 88.6 kg 89.4 kg General appearance: PRESENT: no acute distress, cooperative, obese, well- developed, well-nourished Head exam: PRESENT: atraumatic, normocephalic Eye exam: PRESENT: conjunctiva pink, EOMI, PERRLA. ABSENT: scleral icterus Ear exam: PRESENT: normal external ear exam Mouth exam: PRESENT: moist, tongue midline Teeth exam: PRESENT: poor dentation Neck exam: ABSENT: carotid bruit, JVD, lymphadenopathy, thyromegaly Respiratory exam: PRESENT: clear to auscultation jose, symmetrical, unlabored. ABSENT: rales, rhonchi, wheezes Cardiovascular exam: PRESENT: irregular rhythm, +S1, +S2. ABSENT: diastolic murmur, rubs, systolic murmur Pulses: PRESENT: normal dorsalis pedis pul Vascular exam: PRESENT: normal capillary refill GI/Abdominal exam: PRESENT: normal bowel sounds, soft. ABSENT: distended, guarding, mass, organolmegaly, rebound, tenderness Rectal exam: PRESENT: deferred Extremities exam: PRESENT: full ROM, joint swelling - Slight edema and erythema to MIP joints of bilateral hands; patient denies injury and tenderness.. ABSENT : calf tenderness, clubbing, pedal edema Neurological exam: PRESENT: alert, awake, oriented to person, oriented to place , oriented to time, oriented to situation, CN II-XII grossly intact, other - Slight expressive aphasia, improved from yesterday. 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 No facial droop noted.. ABSENT: motor sensory deficit Psychiatric exam: PRESENT: appropriate affect, normal mood. ABSENT: homicidal ideation, suicidal ideation Skin exam: PRESENT: dry, erythema - As above., intact, warm, other - No evidence of Janeway lesions or Osler nodes. ABSENT: cyanosis, rash Results Laboratory Results: 03/24/18 03:43 03/25/18 03:59 03/25/18 03:59 Sodium 135.5 L Potassium 3.8 Chloride 100 Carbon Dioxide 22 Anion Gap 14 BUN 14 Creatinine 0.73 Est GFR ( Amer) > 60 Est GFR (Non-Af Amer) > 60 Glucose 112 H Calcium 9.6 03/24/18 03/24/18 03/24/18 03:43 03:43 09:25 Creatine Kinase 135 157 H CK-MB (CK-2) 2.54 Troponin I < 0.012 03/24/18 09:25 Creatine Kinase CK-MB (CK-2) 2.74 Troponin I < 0.012 Impressions: Chest X-Ray 03/23/18 19:17 IMPRESSION: Cardiomegaly without pulmonary edema. Head CT 03/23/18 19:17 IMPRESSION: NORMAL BRAIN CT WITHOUT CONTRAST. EVIDENCE OF ACUTE STROKE: NO. Head CTA 03/23/18 20:01 IMPRESSION: There appears to be least partial occlusion of the left middle cerebral artery as described. Neck CTA 03/23/18 20:12 IMPRESSION: The left carotid artery appears to arise from the brachiocephalic trunk. No significant carotid occlusion is seen. Assessment & Plan - Diagnosis (1) CVA (cerebral vascular accident) Qualifiers: CVA mechanism: embolism Precerebral and cerebral artery: middle cerebral artery Laterality of affected vessel: left Qualified Code(s): I63.412 - Cerebral infarction due to embolism of left middle cerebral artery Is this a current diagnosis for this admission?: Yes Plan: Patient presented with acute CVA symptoms found to have a left MCA distribution CVA on CT; likely embolic secondary to new onset atrial fibrillation with RVR. Noncontrasted head CT normal and negative for acute stroke. CTA of the head and neck revealed partial occlusion of the left MCA Neck CTA is benign. Echocardiogram has been completed, report pending. Carotid Dopplers are pending. Head MRI is pending. Lipid panel is acceptable, A1c is 5.6%. Patient was admitted to [facility] on continuous cardiac telemetry. Speech therapy has cleared her for regular consistency and thin liquids. PT/OT evaluations with recommendations for continued rehab upon discharge; will consult Dr. Huerta to evaluate for inpatient acute rehabilitation suitability. Discharge planning has been consulted; fortunately, the patient has been has been successfully placed with his son and is no longer a safety concern. Patient is placed on daily aspirin and statin therapy. She was initially placed on heparin drip secondary to atrial fibrillation with RVR; she is now been transitioned to p.o. Eliquis. (2) Atrial fibrillation with RVR Is this a current diagnosis for this admission?: Yes Plan: The patient was found to be in atrial fibrillation with RVR; heart rate was in the 120s. She was admitted on continuous cardiac telemetry and placed on a diltiazem drip ; Rate control was achieved with average of 5 mg/h. TSH is normal. She has been transitioned to p.o. diltiazem; dose is increased slightly today due to heart rate 106 and continued hypertension: Diltiazem 60 mg p.o. every 6 hours. We will continue to monitor on cardiac telemetry and further adjust dose as necessary. Continue Eliquis 5 mg p.o. twice daily secondary to CVA. Continue daily aspirin therapy. (3) Hypertension Is this a current diagnosis for this admission?: Yes Plan: Improved; blood pressures today 147/77 The patient endorses a history of hypertension; appears to be on clonidine as an outpatient medication. She was initially allowed for permissive hypertension. She has been placed on diltiazem for A. fib with RVR; holding clonidine while making diltiazem adjustments for rate control. We will try to limit number of medications/frequency of pills to improve patient understanding and compliance following discharge. Cardiac diet. (4) GERD (gastroesophageal reflux disease) Is this a current diagnosis for this admission?: Yes Plan: Prevacid daily. (5) Opiate dependence, continuous Is this a current diagnosis for this admission?: Yes Plan: The patient is [facility] for [facility] management. The [place] controlled substance database was reviewed; the patient consistently receives refills of Nucynta ER 100 mg twice daily and oxycodone 10/ 325 3 times daily as needed. The patient's Nucynta and oxycodone are resumed at half dosing; this was discussed with the patient. She understands that the reduced dosing was to prevent sedation and allow for accurate neuro status checks. Unfortunately, Nucynta is not on the hospital formulary. Her family members are requested to bring in her home medications so that it can be continued while inpatient for chronic pain management control and opiate withdrawal prevention. Will adjust titrate medications up to her home dose as needed for adequate pain control. (6) Benzodiazepine dependence, continuous Is this a current diagnosis for this admission?: Yes Plan: The [place] controlled substance database was reviewed; the patient is refills lorazepam 1 mg. Medication reconciliation confirms the patient takes 2 mg qHS and an additional 1 mg up to three times daily as needed. The patient is unable to confirm the exact amount that she utilizes on average, however, her prescription refills do not allow for a total daily dose of 5 mg on a regular basis. The patient is provided Ativan 0.5 mg scheduled every 8 hours for withdrawal prevention. She is provided an additional 0.5 mg as needed every 8 hours for anxiety. (7) EtOH dependence Qualifiers: Substance use status: unspecified alcohol-induced disorder Qualified Code(s ): F10.29 - Alcohol dependence with unspecified alcohol-induced disorder Is this a current diagnosis for this admission?: Yes Plan: The patient's daughter reports her mother has a history of alcoholism and continues to drink several liquor drinks daily. The patient was admitted approximately 3 days after her last known well; she has slight tremor and hypertension today which may possibly be EtOH withdrawal related. We have continued scheduled p.o. Ativan. She has Ativan 0.5 mg every 8 hours as needed. We will monitor for withdrawal symptoms and further adjust benzodiazepines as needed. She is placed on a multivitamin with iron, folate, and thiamine supplementation. - Time Time Spent with patient: 25-34 minutes Medications reviewed and adjusted accordingly: Yes Anticipated discharge: Acute Rehab Within: within 48 hours
--- NOTE | 2018-03-25 18:11 | XCELERA REPORT ---
[address] [address] Transthoracic Echocardiogram Report Name: SCOTTY MCLEOD V Age: 67 yrs Gender: Female : 1950 Patient Status: Inpatient Patient Location: [address] [place] [address] Study Date: 03/25/2018 08:58 AM Procedure: A two-dimensional transthoracic echocardiogram with color flow and Doppler was performed. Study Quality: Technically suboptimal. The study was technically difficult with many images being suboptimal in quality. Images were not obtained from all of the standard acoustic windows due to the limited scope of the study. Reason For Study: cva afib History: CVA ATRIAL FIBRILLATION. Ordering Physician: CHARISSA WELLS Performed By: Juvencio Marlow Interpretation Summary There is no obvious cardiac source of embolus noted on this transthoracic echocardiogram. Follow-up with a KARRI is suggested if cardiac source is still suspected. The left ventricle is grossly normal size. There is normal left ventricular wall thickness. No True apical 2 chamber views obtained.Hence cannot comment on the apical anterior , the basal anterior, the basal inferior and apical inferior lewis.The mid anterior , the mid inferior and the rest of the LV lewis contract normally. .Normal LVEF at 65% in the limited views. Right atrium not well visualized secondary to technical limitations The left atrium is mildly dilated. There is no evidence of mitral valve prolapse. There is no mitral valve stenosis. There is a trace amount of mitral regurgitation There is no aortic valve stenosis No aortic regurgitation is present. There is no tricuspid stenosis. There is a trace amount of tricuspid regurgitation Unable to calculate RVSP due lack of TR jet. There is no pericardial effusion. There is no obvious cardiac source of embolus noted on this transthoracic echocardiogram. Follow-up with a KARRI is suggested if cardiac source is still suspected MMode/2D Measurements & Calculations RVDd: 2.9 cm LVIDd: 5.2 cm FS: 38.3 % Ao root diam: 2.6 cm IVSd: 0.55 cm LVIDs: 3.2 cm EDV(Teich): 127.1 ml Ao root area: 5.3 cm2 LVPWd: 0.77 cm ESV(Teich): 40.4 ml EF(Teich): 68.2 % LA dimension: 4.4 cm LVOT diam: 1.7 cm LVOT area: 2.3 cm2 Doppler Measurements & Calculations MV E max nico: MV P1/2t max nico: Ao V2 max: LV V1 max P.4 cm/sec 148.9 cm/sec 118.3 cm/sec 2.7 mmHg MV A max nico: MV P1/2t: 58.9 msec Ao max PG: LV V1 max: 46.4 cm/sec 5.6 mmHg 81.9 cm/sec MV E/A: 2.7 MVA(P1/2t): 3.7 cm2 MV dec slope: LEONA(V,D): 1.6 cm2 740.7 cm/sec2 MV dec time: 0.21 sec PA V2 max: MV P1/2t-pr_phl: 63.6 cm/sec 59.5 msec PA max P.6 mmHg Left Ventricle The left ventricle is grossly normal size. There is normal left ventricular wall thickness. No True apical 2 chamber views obtained.Hence cannot comment on the apical anterior , the basal anterior, the basal inferior and apical inferior lewis.The mid anterior , the mid inferior and the rest of the LV lewis contract normally. .Normal LVEF at 65% in the limited views. Right Ventricle The right ventricle is not well visualized secondary to technical limitations. Atria Right atrium not well visualized secondary to technical limitations. The left atrium is mildly dilated. Mitral Valve There is no evidence of mitral valve prolapse. There is no vegetation seen on the mitral valve. There is no mitral valve stenosis. There is a trace amount of mitral regurgitation. Aortic Valve There is no aortic valve stenosis. No aortic regurgitation is present. Tricuspid Valve There is no tricuspid stenosis. There is a trace amount of tricuspid regurgitation. Unable to calculate RVSP due lack of TR jet. Pulmonic Valve The pulmonic valve is not well visualized. Great Vessels The aortic root is not well visualized. Effusions There is no pericardial effusion. : CHARISSA WELLS > Savi Wells
--- NOTE | 2018-03-25 19:57 | RADIOLOGY REPORT (SQ) ---
EXAM DESCRIPTION: MRI HEAD WITHOUT COMPLETED DATE/TIME: 03/25/2018 7:11 pm REASON FOR STUDY: cva COMPARISON: 03/23/[address] TECHNIQUE: Multiplanar imaging includes non-contrasted T1, T2, FLAIR, and Diffusion with ADC map seq uences. Images stored on PACS. LIMITATIONS: None. FINDINGS: ANATOMY: No anomalies. Normal vascular flow voids. Pituitary fossa normal. CSF SPACES: Normal in size and contour. No hemorrhage. CEREBRUM: Focal high-signal intensity lesions are present in the region of the left caudate nucleus, globus pallidus, and pituitary min with small internal areas of susceptibility artifact in the parenc hyma as well as extending into the left lateral ventricle consistent with evidence of hemorrhage. POSTERIOR FOSSA: No signal alteration. No hemorrhage. No edema, masses or mass effect. Internal braden tory canals, cerebello-pontine angles, mastoids normal. DIFFUSION: Positive for acute or sub-acute infarction in the region of the left basal ganglia. ORBITS: No masses. Globes normal. PARANASAL SINUSES: No fluid levels. Mucosa normal. OTHER: No other significant finding. IMPRESSION: Positive for acute or sub-acute infarction in the region of the left basal ganglia. Focal high-signal intensity lesions are present in the region of the left caudate nucleus, globus pal lidus, and pituitary min with small internal areas of susceptibility artifact in the parenchyma as we ll as extending into the left lateral ventricle suggesting evidence of hemorrhage. Consider repeat n oncontrast head CT to further assess. EVIDENCE OF ACUTE STROKE: YES. LEFT MCA. COMMENT: Results called to the ICU nursing station at 1950 hours. Results were confirmed and read b ashleigh. TECHNICAL DOCUMENTATION: JOB ID: [id number]- All Rights Reserved Reading location - IP/workstation name: [email or web address]
[2018-03-25] MEDS: ATORVASTATIN CALCIUM 80 MG TABLET PO SCH (20:59)
[2018-03-25] MEDS: GABAPENTIN 100 MG CAPSULE PO SCH (21:01)
[2018-03-26] MEDS: DILTIAZEM HCL 60 MG TABLET PO SCH ×4 (03:02→17:22)
[2018-03-26 05:51] LABS: HEMATOCRIT 40.8 % (36.0-47.0); HEMOGLOBIN 13.8 g/dL (12.0-15.5); MEAN CORPUSCULAR HEMOGLOBIN 30.1 pg (27.0-33.4); MEAN CORPUSCULAR HGB CONC 33.8 g/dL (32.0-36.0); MEAN CORPUSCULAR VOLUME 89 fl (80-97); PLATELET COUNT 259 10^3/uL (150-450); RED BLOOD COUNT 4.58 10^6/uL (3.72-5.28); RED CELL DISTRIBUTION WIDTH 13.5 % (11.5-14.0); WHITE BLOOD COUNT 12.4 10^3/uL (4.0-10.5)
[2018-03-26 06:20] LABS: ANION GAP 10 (5-19); BLOOD UREA NITROGEN 15 mg/dL (7-20); CALCIUM 9.5 mg/dL (8.4-10.2); CARBON DIOXIDE 25 mmol/L (22-30); CHLORIDE 99 mmol/L (98-107); GLUCOSE 122 mg/dL (75-110); SODIUM 133.5 mmol/L (137-145)
[2018-03-26] MEDS: LORAZEPAM 0.5 MG TABLET PO SCH ×3 (06:49→21:25)
[2018-03-26] MEDS: LANSOPRAZOLE 30 MG TAB.RAP.DR PO SCH (06:49)
[2018-03-26] MEDS: THIAMINE HCL 100 MG TABLET PO SCH (09:39)
[2018-03-26] MEDS: OXYCODONE HCL IR 5 MG TABLET PO SCH ×2 (09:39→21:25)
[2018-03-26] MEDS: MULTIVITAMINS W-IRON TABLET, CHEWABLE PO SCH (09:39)
[2018-03-26] MEDS: FLUTICASONE NASAL SPRAY 50 MCG/SPRY 120 SPRAY/16 GM NASL SCH (09:40)
[2018-03-26] MEDS: ASPIRIN 81 MG TABLET, CHEWABLE PO SCH (09:40)
[2018-03-26] MEDS: FOLIC ACID 1 MG TABLET PO SCH (09:40)
[2018-03-26] MEDS ORDERED: TAPENTADOL HCL 100 MG PO SCH (10:09)
[2018-03-26] MEDS: LISINOPRIL 5 MG TABLET PO SCH (10:32)
--- NOTE | 2018-03-26 11:19 | RADIOLOGY REPORT (SQ) ---
EXAM DESCRIPTION: CT HEAD WITHOUT COMPLETED DATE/TIME: 03/26/2018 11:04 am REASON FOR STUDY: Eval ventricular hemorrhage noted on MRI COMPARISON: MR 03/25/2018 CT 03/23/2018 TECHNIQUE: Axial images acquired through the brain without intravenous contrast. Images reviewed wi th bone, brain and subdural windows. Additional sagittal and coronal reconstructions were generated. Images stored on PACS. All CT scanners at this facility use dose modulation, iterative reconstruction, and/or weight based d osing when appropriate to reduce radiation dose to as low as reasonably achievable (ALARA). [facility]: Dose Right [facility]: CareDose [facility]: Dose Right [facility]: Teradose 4D [facility]: Smart [employer] RADIATION DOSE: CT Rad equipment meets quality standard of care and radiation dose reduction techniq ues were employed. CTDIvol: 48.6 mGy. DLP: 925 mGy-cm. mGy. LIMITATIONS: None. FINDINGS: VENTRICLES: Left lateral ventricle is effaced. CEREBRUM: There is an area of decreased attenuation in the basal ganglia on the left. There is mild mass effect. There is a small amount of hemorrhage in this area. Normal fonseca/white matter differenti ation. No areas of low density in the white matter. CEREBELLUM: No masses. No hemorrhage. No alteration of density. No evidence for acute infarction. EXTRAAXIAL SPACES: No fluid collections. No masses. ORBITS AND GLOBE: No intra- or extraconal masses. Normal contour of globe without masses. CALVARIUM: No fracture. PARANASAL SINUSES: No fluid or mucosal thickening. SOFT TISSUES: No mass or hematoma. OTHER: No other significant finding. IMPRESSION: There is limited hemorrhage in the basal ganglia on the left with associated edema. EVIDENCE OF ACUTE STROKE: NO. COMMENT: Quality ID # [id number]: Final reports with documentation of one or more dose reduction techniques (e.g., Automated exposure control, adjustment of the mA and/or kV according to patient size, use of iterative reconstruction technique) TECHNICAL DOCUMENTATION: JOB ID: [id number]- All Rights Reserved Reading location - IP/workstation name: [email or web address]
[2018-03-26] MEDS: NUCYNTA 100 MG PO SCH ×2 (12:08→21:26)
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
[2018-03-26] MEDS: GABAPENTIN 100 MG CAPSULE PO SCH (21:25)
[2018-03-26] MEDS: ATORVASTATIN CALCIUM 80 MG TABLET PO SCH (21:25)
[2018-03-27] MEDS: DILTIAZEM HCL 60 MG TABLET PO SCH ×4 (00:05→17:06)
[2018-03-27] MEDS: LANSOPRAZOLE 30 MG TAB.RAP.DR PO SCH (06:31)
[2018-03-27] MEDS: LORAZEPAM 0.5 MG TABLET PO SCH ×3 (06:31→21:37)
--- NOTE | 2018-03-27 08:54 | RADIOLOGY REPORT (SQ) ---
EXAM DESCRIPTION: CT HEAD WITHOUT COMPLETED DATE/TIME: 03/27/2018 8:45 am REASON FOR STUDY: assess stability of basal hemorrhage COMPARISON: None. TECHNIQUE: Axial images acquired through the brain without intravenous contrast. Images reviewed wi th bone, brain and subdural windows. Additional sagittal and coronal reconstructions were generated. Images stored on PACS. All CT scanners at this facility use dose modulation, iterative reconstruction, and/or weight based d osing when appropriate to reduce radiation dose to as low as reasonably achievable (ALARA). [facility]: Dose Right [facility]: CareDose [facility]: Dose Right [facility]: Teradose 4D [facility]: [employer] RADIATION DOSE: CT Rad equipment meets quality standard of care and radiation dose reduction techniq ues were employed. CTDIvol: 53.2 mGy. DLP: 1017 mGy-cm. mGy. LIMITATIONS: None. FINDINGS: VENTRICLES: Mild effacement left lateral ventricle related to adjacent hemorrhage related edema, similar to prior. No developing hydrocephalus. CEREBRUM: Small focal scratch the area of hemorrhage in the deep left white matter extends to involve the left basal ganglia. Associated surrounding low-density edema without change. No new areas of h emorrhage or gross progression. CEREBELLUM: No masses. No hemorrhage. No alteration of density. No evidence for acute infarction. EXTRAAXIAL SPACES: No fluid collections. No masses. ORBITS AND GLOBE: No intra- or extraconal masses. Normal contour of globe without masses. CALVARIUM: No fracture. PARANASAL SINUSES: No fluid or mucosal thickening. SOFT TISSUES: No mass or hematoma. OTHER: No other significant finding. IMPRESSION: 1. Stable parenchymal hemorrhage with associated cerebral edema. No progressive hydroce phalus or shift. No new areas of hemorrhage. EVIDENCE OF ACUTE STROKE: NO. COMMENT: Quality ID # [id number]: Final reports with documentation of one or more dose reduction techniques (e.g., Automated exposure control, adjustment of the mA and/or kV according to patient size, use of iterative reconstruction technique) TECHNICAL DOCUMENTATION: JOB ID: [id number] [employer]- All Rights Reserved Reading location - IP/workstation name: [email or web address]
[2018-03-27] MEDS: DOCUSATE SODIUM 100 MG CAPSULE PO PRN ×2 (09:10→17:06)
[2018-03-27] MEDS: NUCYNTA 100 MG PO SCH (09:10)
[2018-03-27] MEDS: FOLIC ACID 1 MG TABLET PO SCH (09:11)
[2018-03-27] MEDS: THIAMINE HCL 100 MG TABLET PO SCH (09:11)
[2018-03-27] MEDS: MULTIVITAMINS W-IRON TABLET, CHEWABLE PO SCH (09:11)
[2018-03-27] MEDS: ASPIRIN 81 MG TABLET, CHEWABLE PO SCH (09:11)
[2018-03-27] MEDS: OXYCODONE HCL IR 5 MG TABLET PO SCH (09:12)
[2018-03-27] MEDS: FLUTICASONE NASAL SPRAY 50 MCG/SPRY 120 SPRAY/16 GM NASL SCH (09:12)
[2018-03-27] MEDS: MAGNESIUM HYDROXIDE SUSP 30 ML UDCUP PO PRN (09:18)
[2018-03-27] MEDS: LISINOPRIL 5 MG TABLET PO SCH (09:20)
--- NOTE | 2018-03-27 13:37 | PDOC PROGRESS REPORT ---
Subjective Progress Note for:: 03/27/18 Subjective:: The patient is a 67-year-old female with a limited past medical history secondary to expressive aphasia, but known to have chronic pain with opiate dependence, benzodiazepine dependence, hyperlipidemia and hypertension who was admitted 03/23/18 with left MCA distribution CVA. The patient was seen on morning rounds. She is found resting in bed comfortably on room air. Initially she is sleeping but wakes easily when I say her name. She is A&Ox4 and conversationally appropriate, though noted to be fatigued and with slurred speech today. No facial droop noted. The patient reports slight headache but otherwise denies complaints. No dizziness, blurred vision, chest pain, palpitations, dyspnea, orthopnea, abdominal pain, nausea and vomiting. No new concerns per patient. Nursing reports that the patient had slight slurred speech early this morning prior to receiving her scheduled Xanax and Nucynta; has worsened since then. Recommending doing of medications available. They also report that the patient had has been constipated; have become bowel protocol. No other concerns at this time. Reason For Visit: ACUTE CVA AFIB Physical Exam Vital Signs: Temp Pulse Resp BP Pulse Ox 98.1 F 75 24 H 131/75 H 94 03/27/18 11:20 03/27/18 12:44 03/27/18 12:00 03/27/18 12:44 03/27/18 12:44 Intake & Output 03/26/18 03/27/18 03/28/18 06:59 06:59 06:59 Intake Total 710 500 115 Output Total 2 150 Balance 708 350 115 Weight 87.1 kg 89 kg General appearance: PRESENT: no acute distress, cooperative, well-developed, well-nourished - Overweight Head exam: PRESENT: atraumatic, normocephalic Eye exam: PRESENT: conjunctiva pink, EOMI, PERRLA. ABSENT: scleral icterus Ear exam: PRESENT: normal external ear exam Mouth exam: PRESENT: moist, tongue midline Teeth exam: PRESENT: poor dentation Neck exam: ABSENT: carotid bruit, JVD, lymphadenopathy, thyromegaly Respiratory exam: PRESENT: clear to auscultation jose, symmetrical, unlabored. ABSENT: rales, rhonchi, wheezes Cardiovascular exam: PRESENT: irregular rhythm, +S1, +S2. ABSENT: diastolic murmur, rubs, systolic murmur Pulses: PRESENT: normal dorsalis pedis pul Vascular exam: PRESENT: normal capillary refill GI/Abdominal exam: PRESENT: normal bowel sounds, soft. ABSENT: distended, guarding, mass, organolmegaly, rebound, tenderness Rectal exam: PRESENT: deferred Extremities exam: PRESENT: full ROM. ABSENT: calf tenderness, clubbing, pedal edema Neurological exam: PRESENT: alert, awake, oriented to person, oriented to place , oriented to time, oriented to situation, CN II-XII grossly intact, other - Slightly slurred speech; fumigator and sterilizer equal bilaterally, dorsal/plantar flexion equal bilaterally. ABSENT: motor sensory deficit Psychiatric exam: PRESENT: appropriate affect, normal mood. ABSENT: homicidal ideation, suicidal ideation Skin exam: PRESENT: dry, intact, warm. ABSENT: cyanosis, rash Results Laboratory Results: 03/26/18 05:39 03/26/18 05:39 03/24/18 03/24/18 03/24/18 03:43 03:43 09:25 Creatine Kinase 135 157 H CK-MB (CK-2) 2.54 Troponin I < 0.012 03/24/18 09:25 Creatine Kinase CK-MB (CK-2) 2.74 Troponin I < 0.012 Impressions: Chest X-Ray 03/23/18 19:17 IMPRESSION: Cardiomegaly without pulmonary edema. Head CTA 03/23/18 20:01 IMPRESSION: There appears to be least partial occlusion of the left middle cerebral artery as described. Neck CTA 03/23/18 20:12 IMPRESSION: The left carotid artery appears to arise from the brachiocephalic trunk. No significant carotid occlusion is seen. Head MRI 03/25/18 00:00 IMPRESSION: Positive for acute or sub-acute infarction in the region of the left basal ganglia. Focal high-signal intensity lesions are present in the region of the left caudate nucleus, globus pallidus, and pituitary min with small internal areas of susceptibility artifact in the parenchyma as well as extending into the left lateral ventricle suggesting evidence of hemorrhage. Consider repeat noncontrast head CT to further assess. EVIDENCE OF ACUTE STROKE: YES. LEFT MCA. Head CT 03/27/18 08:00 IMPRESSION: 1. Stable parenchymal hemorrhage with associated cerebral edema. No progressive hydrocephalus or shift. No new areas of hemorrhage. EVIDENCE OF ACUTE STROKE: NO. Assessment & Plan - Diagnosis (1) CVA (cerebral vascular accident) Qualifiers: CVA mechanism: embolism Precerebral and cerebral artery: middle cerebral artery Laterality of affected vessel: left Qualified Code(s): I63.412 - Cerebral infarction due to embolism of left middle cerebral artery Is this a current diagnosis for this admission?: Yes Plan: Patient presented with acute CVA symptoms found to have a left MCA distribution CVA on CT; likely embolic secondary to new onset atrial fibrillation with RVR. Noncontrasted head CT normal and negative for acute stroke. CTA of the head and neck revealed partial occlusion of the left MCA Neck CTA is benign. Echocardiogram has been completed, benign findings. Of note, this was a transthoracic echocardiogram with limited capabilities of assessing for PFO or VSD. Head MRI was positive for acute/subacute infarction in the region of the left basal ganglia. Small internal areas of susceptibility artifact in the paronychia and extending to the left lateral ventricle evidencing hemorrhage were present. Head CT (03/26/18) confirmed a limited hemorrhage in the basal ganglia on the left associated with edema. Repeat head CT today confirms limited hemorrhage is unchanged, no new evidence of bleeding. Lipid panel is acceptable, A1c is 5.6%. Patient was admitted to [facility] on continuous cardiac telemetry. Speech therapy has cleared her for regular consistency and thin liquids. PT/OT evaluations with recommendations for continued rehab upon discharge; Dr. Huerta was consulted to evaluate for inpatient acute rehabilitation suitability. She has been accepted to [facility] for acute rehab. I spoke with Mr. Brad Tavera PA-C with [facility] Neurosurgery to discuss hemorrhagic findings; recommended repeat CT in 24 hours. If stable, may continue with planned d/c to acute rehabilitation. Repeat imaging is stable today. Continue daily aspirin and statin therapy. She was initially placed on heparin drip secondary to atrial fibrillation with RVR and subsequently transitioned to p.o. Eliquis. Her Eliquis was then discontinued following MRI revealing hemorrhage. Slightly decreased mental status today; I assume this is related to resuming her outpatient opiate medication regiment. Will decrease narcotic and benzodiazepine dosing. Fall precautions. (2) Atrial fibrillation with RVR Is this a current diagnosis for this admission?: Yes Plan: Currently atrial fibrillation with a heart rate of 95.. The patient was found to be in atrial fibrillation with RVR; heart rate was in the 120s. She was admitted on continuous cardiac telemetry and placed on a diltiazem drip. TSH is normal. She has been transitioned to p.o. diltiazem 60 mg p.o. every 6 hours. We will continue to monitor on cardiac telemetry and further adjust dose as necessary. Continue daily aspirin therapy. Anticoagulation is contraindicated at this time due to development of intracranial hemorrhage. (3) Hypertension Qualifiers: Hypertension type: essential hypertension Qualified Code(s): I10 - Essential (primary) hypertension Is this a current diagnosis for this admission?: Yes Plan: Blood pressures are acceptable today. The patient endorses a history of hypertension. She was initially allowed for permissive hypertension. She has been placed on diltiazem for A. fib with RVR; now rate controlled on p.o. diltiazem. Continue lisinopril. Cardiac diet. (4) GERD (gastroesophageal reflux disease) Is this a current diagnosis for this admission?: Yes Plan: Prevacid daily. (5) Opiate dependence, continuous Is this a current diagnosis for this admission?: Yes Plan: [facility]. The [place] controlled substance database was reviewed; the patient consistently receives refills of Nucynta ER 100 mg twice daily and oxycodone 10/ 325 3 times daily as needed. The patient is noted to have increased fatigue and slurred speech today. 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 Will discontinue Nucynta; start OxyContin 10 mg every 12 hours (approximately half of her Nucynta dose). We will continue oxycodone 5/325 as needed for breakthrough pain. Utilize nonpharmacological interventions as able. (6) Benzodiazepine dependence, continuous Is this a current diagnosis for this admission?: Yes Plan: The [place] controlled substance database was reviewed; the patient is refills lorazepam 1 mg. Medication reconciliation confirms the patient takes 2 mg qHS and an additional 1 mg up to three times daily as needed. The patient is unable to confirm the exact amount that she utilizes on average, however, her prescription refills do not allow for a total daily dose of 5 mg on a regular basis. Will decrease scheduled ativan to 0.25 mg scheduled every 8 hours for withdrawal prevention. She is provided an additional 0.5 mg as needed every 8 hours for anxiety/ withdrawal symptoms. (7) EtOH dependence Qualifiers: Substance use status: unspecified alcohol-induced disorder Qualified Code(s ): F10.29 - Alcohol dependence with unspecified alcohol-induced disorder Is this a current diagnosis for this admission?: Yes Plan: The patient's daughter reports her mother has a history of alcoholism and continues to drink several liquor drinks daily. The patient was admitted approximately 3 days after her last known well; she has slight tremor and hypertension today which may possibly be EtOH withdrawal related. We have continued scheduled p.o. Ativan. She has Ativan 0.5 mg every 8 hours as needed. We will monitor for withdrawal symptoms and further adjust benzodiazepines as needed. Continue multivitamin with iron, folate, and thiamine supplementation. (8) Constipation Is this a current diagnosis for this admission?: Yes Plan: Continue Colace and milk of magnesium as needed for constipation. Encourage increased fluid intake. Encouraged ambulation/mobility/position changes. (9) Chest pain Qualifiers: Chest pain type: unspecified Qualified Code(s): R07.9 - Chest pain, unspecified Is this a current diagnosis for this admission?: Yes Plan: The patient reported right-sided chest pain this morning; no radiation, no associated symptoms. She believes it to be related to gas/indigestion as the pain began shortly after taking milk of magnesia. She is currently monitored on telemetry; no concerning findings. Will obtain BMP, CBC, troponin. Continue aspirin and statin therapy. - Time Time Spent with patient: 15-24 minutes Medications reviewed and adjusted accordingly: Yes Anticipated discharge: Acute Rehab Within: when bed available - anticipated for Thursday
[2018-03-27 14:49] LABS: HEMATOCRIT 39.1 % (36.0-47.0); HEMOGLOBIN 13.2 g/dL (12.0-15.5); MEAN CORPUSCULAR HEMOGLOBIN 30.2 pg (27.0-33.4); MEAN CORPUSCULAR HGB CONC 33.8 g/dL (32.0-36.0); MEAN CORPUSCULAR VOLUME 89 fl (80-97); PLATELET COUNT 296 10^3/uL (150-450); RED BLOOD COUNT 4.38 10^6/uL (3.72-5.28); RED CELL DISTRIBUTION WIDTH 13.4 % (11.5-14.0); WHITE BLOOD COUNT 12.8 10^3/uL (4.0-10.5)
[2018-03-27 15:09] LABS: ANION GAP 11 (5-19); BLOOD UREA NITROGEN 26 mg/dL (7-20); CALCIUM 9.3 mg/dL (8.4-10.2); CARBON DIOXIDE 24 mmol/L (22-30); CHLORIDE 97 mmol/L (98-107); GLUCOSE 119 mg/dL (75-110); POTASSIUM 4.9 mmol/L (3.6-5.0); SODIUM 131.7 mmol/L (137-145)
[2018-03-27] MEDS: NORMAL SALINE 1000 ML 1,000 ML IV PRN (15:59)
[2018-03-27 16:35] LABS: APPEARANCE,URINE SLIGHTLY-CLOUDY; BILIRUBIN,URINE NEGATIVE (NEGATIVE); COLOR,URINE YELLOW; GLUCOSE, URINE NEGATIVE (NEGATIVE); KETONES,URINE NEGATIVE (NEGATIVE); LEUKOCYTE ESTERASE,URINE NEGATIVE (NEGATIVE); NITRITE,URINE NEGATIVE (NEGATIVE); PROTEIN,URINE NEGATIVE (NEGATIVE); URINE SPECIFIC GRAVITY 1.017; UROBILINOGEN,URINE NEGATIVE mg/dL (<2.0)
[2018-03-27] MEDS: OXYCODONE HCL SR 10 MG TABLET PO SCH (21:37)
[2018-03-27] MEDS: GABAPENTIN 100 MG CAPSULE PO SCH (21:37)
[2018-03-27] MEDS: ATORVASTATIN CALCIUM 80 MG TABLET PO SCH (21:37)
[2018-03-28] MEDS: DILTIAZEM HCL 60 MG TABLET PO SCH ×4 (00:20→17:35)
[2018-03-28] MEDS: NORMAL SALINE 1000 ML 1,000 ML IV PRN ×3 (00:21→20:14)
[2018-03-28] MEDS: LANSOPRAZOLE 30 MG TAB.RAP.DR PO SCH (05:52)
[2018-03-28] MEDS: LORAZEPAM 0.5 MG TABLET PO SCH ×3 (05:52→21:48)
[2018-03-28] MEDS: FOLIC ACID 1 MG TABLET PO SCH (10:27)
[2018-03-28] MEDS: ASPIRIN 81 MG TABLET, CHEWABLE PO SCH (10:28)
[2018-03-28] MEDS: LISINOPRIL 5 MG TABLET PO SCH (10:28)
[2018-03-28] MEDS: THIAMINE HCL 100 MG TABLET PO SCH (10:28)
[2018-03-28] MEDS: MULTIVITAMINS W-IRON TABLET, CHEWABLE PO SCH (10:28)
[2018-03-28] MEDS: FLUTICASONE NASAL SPRAY 50 MCG/SPRY 120 SPRAY/16 GM NASL SCH (10:29)
[2018-03-28] MEDS: DOCUSATE SODIUM 100 MG CAPSULE PO PRN ×2 (10:36→14:46)
[2018-03-28] MEDS: MAGNESIUM HYDROXIDE SUSP 30 ML UDCUP PO PRN (10:36)
[2018-03-28] MEDS: OXYCODONE HCL SR 10 MG TABLET PO SCH ×2 (10:38→21:48)
[2018-03-28] MEDS ORDERED: IPRATROPIUM/ALBUTEROL 0.5-2.5 MG/3 ML AMPUL NEB PRN (11:29)
--- NOTE | 2018-03-28 14:58 | PDOC PROGRESS REPORT ---
Subjective Progress Note for:: 03/28/18 Subjective:: The patient is a 67-year-old female with a limited past medical history secondary to expressive aphasia, but known to have chronic pain with opiate dependence, benzodiazepine dependence, hyperlipidemia and hypertension who was admitted 03/23/18 with left MCA distribution CVA. The patient was seen on morning rounds with her daughter present. She was first seen ambulating in the hallway with a front wheel walker and physical therapy's assistance. Her daughter approached me separately; very concerned about increased fatigue, talking in her sleep, difficulty with word finding. Daughter expresses concern about the patient's benzodiazepine and opiate use. She is obviously distraught by her mother's new CVA; spent significant amount of time discussing the evolution of strokes, waxing and waning symptoms, and the importance of slowly reducing opiate and benzodiazepines to prevent withdrawal symptoms. I then saw the patient with the daughter present. At that time, she was resting in bed comfortably on room air. She is A&Ox4, with clear speech, score of 0 on mends, and very little expressive aphasia noted. The patient did state that it was the last day of August when asked the date, although it was clear by her facial expression. She immediately recognized that August was not the correct month. She was able to accurately state the year, president, full name , personal address, hospital location, and answer further questions without difficulty. We discussed her recent CT imaging, progress thus far, and encouraged her to continue with acute rehabilitation. The patient denies complaints at this time; no dizziness, blurred vision, chest pain, palpitations, dyspnea, orthopnea, abdominal pain, nausea and vomiting. No new concerns per patient. Nursing reports that the patient has not had a bowel movement since arrival, otherwise, no new concerns. Reason For Visit: ACUTE CVA AFIB Physical Exam Vital Signs: Temp Pulse Resp BP Pulse Ox 98.4 F 98 24 H 150/69 H 94 03/28/18 11:16 03/28/18 14:00 03/28/18 12:00 03/28/18 12:00 03/28/18 12:00 Intake & Output 03/27/18 03/28/18 03/29/18 06:59 06:59 06:59 Intake Total 500 1510 1265 Output Total 150 Balance 350 1510 1265 Weight 89 kg 90.7 kg General appearance: PRESENT: no acute distress, cooperative, obese, well- developed, well-nourished Head exam: PRESENT: atraumatic, normocephalic Eye exam: PRESENT: conjunctiva pink, EOMI, PERRLA. ABSENT: scleral icterus Ear exam: PRESENT: normal external ear exam Mouth exam: PRESENT: moist, tongue midline Neck exam: ABSENT: carotid bruit, JVD, lymphadenopathy, thyromegaly Respiratory exam: PRESENT: clear to auscultation jose, symmetrical, unlabored. ABSENT: rales, rhonchi, wheezes Cardiovascular exam: PRESENT: irregular rhythm, +S1, +S2. ABSENT: diastolic murmur, rubs, systolic murmur Pulses: PRESENT: normal dorsalis pedis pul Vascular exam: PRESENT: normal capillary refill GI/Abdominal exam: PRESENT: normal bowel sounds, soft. ABSENT: distended, guarding, mass, organolmegaly, rebound, tenderness Rectal exam: PRESENT: deferred Extremities exam: PRESENT: full ROM. ABSENT: calf tenderness, clubbing, pedal edema Neurological exam: PRESENT: alert, awake, oriented to person, oriented to place , oriented to time, oriented to situation, CN II-XII grossly intact, other - Occasional slight expressive aphasia. ABSENT: motor sensory deficit Psychiatric exam: PRESENT: appropriate affect, normal mood. ABSENT: homicidal ideation, suicidal ideation Skin exam: PRESENT: dry, intact, warm. ABSENT: cyanosis, rash Results Laboratory Results: 03/27/18 14:20 03/27/18 14:20 03/27/18 03/27/18 03/27/18 14:20 14:20 16:20 WBC 12.8 H RBC 4.38 Hgb 13.2 Hct 39.1 MCV 89 MCH 30.2 MCHC 33.8 RDW 13.4 Plt Count 296 Sodium 131.7 L Potassium 4.9 Chloride 97 L Carbon Dioxide 24 Anion Gap 11 BUN 26 H Creatinine 1.05 Est GFR ( Amer) > 60 Est GFR (Non-Af Amer) 52 L Glucose 119 H Calcium 9.3 Urine Color YELLOW Urine Appearance SLIGHTLY-CLOUDY Urine pH 5.0 Ur Specific [place] 1.017 Urine Protein NEGATIVE Urine Glucose (UA) NEGATIVE Urine Ketones NEGATIVE Urine Blood NEGATIVE Urine Nitrite NEGATIVE Ur Leukocyte Esterase NEGATIVE Urine WBC (Auto) 2 Urine RBC (Auto) 1 09/03/24/18 03/24/18 03:43 03:43 09:25 Creatine Kinase 135 157 H CK-MB (CK-2) 2.54 Troponin I < 0.012 03/24/18 03/27/18 09:25 14:20 Creatine Kinase CK-MB (CK-2) 2.74 Troponin I < 0.012 < 0.012 Impressions: Chest X-Ray 03/23/18 19:17 IMPRESSION: Cardiomegaly without pulmonary edema. Head CTA 03/23/18 20:01 IMPRESSION: There appears to be least partial occlusion of the left middle cerebral artery as described. Neck CTA 03/23/18 20:12 IMPRESSION: The left carotid artery appears to arise from the brachiocephalic trunk. No significant carotid occlusion is seen. Head MRI 03/25/18 00:00 IMPRESSION: Positive for acute or sub-acute infarction in the region of the left basal ganglia. Focal high-signal intensity lesions are present in the region of the left caudate nucleus, globus pallidus, and pituitary min with small internal areas of susceptibility artifact in the parenchyma as well as extending into the left lateral ventricle suggesting evidence of hemorrhage. Consider repeat noncontrast head CT to further assess. EVIDENCE OF ACUTE STROKE: YES. LEFT MCA. Head CT 03/27/18 08:00 IMPRESSION: 1. Stable parenchymal hemorrhage with associated cerebral edema. No progressive hydrocephalus or shift. No new areas of hemorrhage. EVIDENCE OF ACUTE STROKE: NO. Assessment & Plan - Diagnosis (1) CVA (cerebral vascular accident) Qualifiers: CVA mechanism: embolism Precerebral and cerebral artery: middle cerebral artery Laterality of affected vessel: left Qualified Code(s): I63.412 - Cerebral infarction due to embolism of left middle cerebral artery Is this a current diagnosis for this admission?: Yes Plan: Patient presented with acute CVA symptoms found to have a left MCA distribution CVA on CT; likely embolic secondary to new onset atrial fibrillation with RVR. Noncontrasted head CT normal and negative for acute stroke. CTA of the head and neck revealed partial occlusion of the left MCA Neck CTA is benign. Echocardiogram has been completed, benign findings. Of note, this was a transthoracic echocardiogram with limited capabilities of assessing for PFO or VSD. Head MRI was positive for acute/subacute infarction in the region of the left basal ganglia. Small internal areas of susceptibility artifact in the paronychia and extending to the left lateral ventricle evidencing hemorrhage were present. Head CT (03/26/18) confirmed a limited hemorrhage in the basal ganglia on the left associated with edema. Repeat head CT today confirms limited hemorrhage is unchanged, no new evidence of bleeding. Lipid panel is acceptable, A1c is 5.6%. Patient was admitted to [facility] on continuous cardiac telemetry. Speech therapy has cleared her for regular consistency and thin liquids. PT/OT evaluations with recommendations for continued rehab upon discharge; Dr. Huerta was consulted to evaluate for inpatient acute rehabilitation suitability. She has been accepted to [facility] for acute rehab. I spoke with Mr. Brad Tavera PA-C with [facility] Neurosurgery to discuss hemorrhagic findings; recommended repeat CT to assess for stability of hemorrhage. Repeat CT is reassuring. Continue daily aspirin and statin therapy. She was initially placed on heparin drip secondary to atrial fibrillation with RVR and subsequently transitioned to p.o. Eliquis. Her Eliquis was then discontinued following MRI revealing hemorrhage. Fall precautions. (2) Atrial fibrillation with RVR Is this a current diagnosis for this admission?: Yes Plan: Currently rate controlled. The patient was found to be in atrial fibrillation with RVR; heart rate was in the 120s. She was admitted on continuous cardiac telemetry and placed on a diltiazem drip. TSH is normal. She has been transitioned to p.o. diltiazem 60 mg p.o. every 6 hours. We will continue to monitor on cardiac telemetry and further adjust dose as necessary. Continue daily aspirin therapy. Anticoagulation is contraindicated at this time due to development of intracranial hemorrhage. (3) Hypertension Qualifiers: Hypertension type: essential hypertension Qualified Code(s): I10 - Essential (primary) hypertension Is this a current diagnosis for this admission?: Yes Plan: Blood pressures are acceptable today. The patient endorses a history of hypertension. She was initially allowed for permissive hypertension. She has been placed on diltiazem for A. fib with RVR; now rate controlled on p.o. diltiazem. Continue lisinopril. Cardiac diet. (4) GERD (gastroesophageal reflux disease) Is this a current diagnosis for this admission?: Yes Plan: Prevacid daily. (5) Opiate dependence, continuous Is this a current diagnosis for this admission?: Yes Plan: The patient is followed by [facility] for chronic pain management. The [place] controlled substance database was reviewed; the patient consistently receives refills of Nucynta ER 100 mg twice daily and oxycodone 10/ 325 3 times daily as needed. Improved alertness today following reduction of total daily dose of opiate medications. Nucynta was discontinued; continue OxyContin 10 mg every 12 hours ( approximately half of her Nucynta dose). We will continue oxycodone 5/325 as needed for breakthrough pain. Utilize nonpharmacological interventions as able. (6) Benzodiazepine dependence, continuous Is this a current diagnosis for this admission?: Yes Plan: The [place] controlled substance database was reviewed; the patient is refills lorazepam 1 mg. Medication reconciliation confirms the patient takes 2 mg qHS and an additional 1 mg up to three times daily as needed. The patient is unable to confirm the exact amount that she utilizes on average, however, her prescription refills do not allow for a total daily dose of 5 mg on a regular basis. Continue ativan to 0.25 mg scheduled every 8 hours for withdrawal prevention. She is provided an additional 0.5 mg as needed every 8 hours for anxiety/ withdrawal symptoms. (7) EtOH dependence Qualifiers: Substance use status: unspecified alcohol-induced disorder Qualified Code(s ): F10.29 - Alcohol dependence with unspecified alcohol-induced disorder Is this a current diagnosis for this admission?: Yes Plan: The patient's daughter reports her mother has a history of alcoholism and continues to drink several liquor drinks daily. The patient was admitted approximately 3 days after her last known well; she has slight tremor and hypertension today which may possibly be EtOH withdrawal related. We have continued scheduled p.o. Ativan. She has Ativan 0.5 mg every 8 hours as needed. We will monitor for withdrawal symptoms and further adjust benzodiazepines as needed. Continue multivitamin with iron, folate, and thiamine supplementation. (8) Constipation Is this a current diagnosis for this admission?: Yes Plan: Continue Colace and milk of magnesium as needed for constipation. Encourage increased fluid intake. Encouraged ambulation/mobility/position changes. (9) Chest pain Qualifiers: Chest pain type: unspecified Qualified Code(s): R07.9 - Chest pain, unspecified Is this a current diagnosis for this admission?: Yes Plan: Resolved. The patient reported right-sided chest pain this morning; no radiation, no associated symptoms. She believes it to be related to gas/indigestion as the pain began shortly after taking milk of magnesia. She is currently monitored on telemetry; no concerning findings. BMP, CBC, troponin were all reassuring. Continue aspirin and statin therapy. - Time Time Spent with patient: 35 or more minutes Medications reviewed and adjusted accordingly: Yes Anticipated discharge: Acute Rehab Within: when bed available - Likely tomorrow.
[2018-03-28] MEDS ORDERED: BISACODYL 5 MG TABEC PO ONE (16:45)
[2018-03-28] MEDS ORDERED: NA PHOS,M-B/NA PHOS,DI-BA (ADULT) 133 ML ENEMA PR ONE (16:45)
[2018-03-28] MEDS: GABAPENTIN 100 MG CAPSULE PO SCH (21:48)
[2018-03-28] MEDS: ATORVASTATIN CALCIUM 80 MG TABLET PO SCH (21:49)
[2018-03-28] MEDS: FLUTICASONE/SALMETEROL DISKUS 250-50 MCG/DOSE IH SCH (21:49)
[2018-03-29] MEDS: DILTIAZEM HCL 60 MG TABLET PO SCH ×4 (00:25→19:33)
[2018-03-29 04:29] LABS: HEMATOCRIT 36.8 % (36.0-47.0); HEMOGLOBIN 12.2 g/dL (12.0-15.5); MEAN CORPUSCULAR HEMOGLOBIN 29.9 pg (27.0-33.4); MEAN CORPUSCULAR HGB CONC 33.2 g/dL (32.0-36.0); MEAN CORPUSCULAR VOLUME 90 fl (80-97); PLATELET COUNT 232 10^3/uL (150-450); RED BLOOD COUNT 4.08 10^6/uL (3.72-5.28); RED CELL DISTRIBUTION WIDTH 13.6 % (11.5-14.0); WHITE BLOOD COUNT 11.9 10^3/uL (4.0-10.5)
[2018-03-29] MEDS: LANSOPRAZOLE 30 MG TAB.RAP.DR PO SCH (07:34)
[2018-03-29] MEDS: LORAZEPAM 0.5 MG TABLET PO SCH ×3 (07:35→22:18)
[2018-03-29] MEDS: FLUTICASONE/SALMETEROL DISKUS 250-50 MCG/DOSE IH SCH ×2 (11:29→22:24)
[2018-03-29] MEDS: FLUTICASONE NASAL SPRAY 50 MCG/SPRY 120 SPRAY/16 GM NASL SCH (11:30)
[2018-03-29] MEDS: TIOTROPIUM BROMIDE DPI 5 CAP/KIT (18 MCG/CAP) IH SCH (11:30)
[2018-03-29] MEDS: OXYCODONE HCL SR 10 MG TABLET PO SCH ×2 (11:31→22:18)
[2018-03-29] MEDS: ASPIRIN 81 MG TABLET, CHEWABLE PO SCH (11:31)
[2018-03-29] MEDS: THIAMINE HCL 100 MG TABLET PO SCH (11:31)
[2018-03-29] MEDS: OXYCODONE HCL IR 5 MG TABLET PO PRN (11:31)
[2018-03-29] MEDS: MULTIVITAMINS W-IRON TABLET, CHEWABLE PO SCH (11:34)
[2018-03-29] MEDS: FOLIC ACID 1 MG TABLET PO SCH (11:34)
[2018-03-29] MEDS: LISINOPRIL 5 MG TABLET PO SCH (11:37)
[2018-03-29 11:41] LABS: BILIRUBIN,URINE NEGATIVE (NEGATIVE); COLOR,URINE YELLOW; GLUCOSE, URINE NEGATIVE (NEGATIVE); KETONES,URINE TRACE mg/dL (NEGATIVE); LEUKOCYTE ESTERASE,URINE NEGATIVE (NEGATIVE); NITRITE,URINE NEGATIVE (NEGATIVE); PROTEIN,URINE NEGATIVE (NEGATIVE); URINE SPECIFIC GRAVITY 1.012; UROBILINOGEN,URINE NEGATIVE mg/dL (<2.0)
[2018-03-29 11:48] LABS: APPEARANCE,URINE CLEAR
--- NOTE | 2018-03-29 12:29 | PDOC TRANSFER SUMMARY ---
General Admission Date/PCP: 03/23/18 23:19 Resuscitation Status: Full Code - Transfer Diagnosis (1) CVA (cerebral vascular accident) Is this a current diagnosis for this admission?: Yes Diagnosis Summary: Patient presented with acute CVA symptoms found to have a left MCA distribution CVA on CT; likely embolic secondary to new onset atrial fibrillation with RVR. Noncontrasted head CT normal and negative for acute stroke. CTA of the head and neck revealed partial occlusion of the left MCA Neck CTA is benign. Echocardiogram has been completed, benign findings. Of note, this was a transthoracic echocardiogram with limited capabilities of assessing for PFO or VSD. Head MRI was positive for acute/subacute infarction in the region of the left basal ganglia. Small internal areas of susceptibility artifact in the paronychia and extending to the left lateral ventricle evidencing hemorrhage were present. Head CT (03/26/18) confirmed a limited hemorrhage in the basal ganglia on the left associated with edema. Repeat Head CT (03/27/18) confirms limited hemorrhage is unchanged, no new evidence of bleeding. Lipid panel is acceptable, A1c is 5.6%. The patient was placed on daily aspirin and statin therapy. She was initially placed on a heparin drip and transitioned to Eliquis due to new onset A. fib. After development of intracranial hemorrhage, anticoagulants were discontinued. Discussed with [facility] neurosurgery; no indications for surgical intervention at this time. They recommend follow-up imaging in 2 weeks to establish stability, at that time may resume anticoagulant therapy. PT/OT/ST evaluations were completed. Recommendations for acute rehabilitation. Dr. Huerta of [facility] acute rehab has accepted the patient pending screening urinalysis and occult stool. Fortunately, both of these tests were negative. The patient is transferred to [facility] in stable condition for acute rehabilitation. Recommend follow up CBC in 1 week, follow up non-contrasted Head CT in 2 weeks with Neurology consultation (Neurosurgery if evidence of continued hemorrhage), and follow up with her primary care provider within 1 week of discharge from Rehab. (2) Atrial fibrillation with RVR Is this a current diagnosis for this admission?: Yes Diagnosis Summary: The patient was found to be in atrial fibrillation with RVR; heart rate was in the 120s. She was admitted on continuous cardiac telemetry and placed on a diltiazem drip ; rate control was achieved and the patient was transitioned to oral diltiazem. TSH is normal. Continue daily aspirin therapy. Anticoagulation is contraindicated at this time due to development of intracranial hemorrhage. Chronic anticoagulation should be held for a minimum of 2 weeks. Following repeat Head CT, resumption of anticoagulation for future stroke prevention can be considered. Based upon stroke and bleeding risk, a conversation should be had with the patient and family members with regard to resuming medication. [id number] score: 5 (7.2% yearly CVA risk due to a.fib) HAS-BLED score: 5 (9.1% yearly major bleed risk while on anticoagulation for a.fib) It is recommended that she continue her daily aspirin therapy. (3) Hypertension Is this a current diagnosis for this admission?: Yes Diagnosis Summary: Acceptable blood pressures with oral diltiazem and lisinopril. Cardiac diet recommendations. (4) GERD (gastroesophageal reflux disease) Is this a current diagnosis for this admission?: Yes Diagnosis Summary: Asymptomatic on daily Prevacid. (5) Opiate dependence, continuous Is this a current diagnosis for this admission?: Yes Diagnosis Summary: The patient is followed by [facility] for chronic pain management. The [place] controlled substance database was reviewed; the patient consistently receives refills of Nucynta ER 100 mg twice daily and oxycodone 10/ 325 3 times daily as needed. The patient has done well with opiate wean: Nucynta was discontinued; transitioned to OxyContin 10 mg every 12 hours ( approximately half of her Nucynta dose). With oxycodone 5/325 as needed for breakthrough pain; has not been required. Recommend continued weaning and utilization of nonpharmacological interventions. (6) Benzodiazepine dependence, continuous Is this a current diagnosis for this admission?: Yes Diagnosis Summary: The [place] controlled substance database was reviewed; the patient is refills lorazepam 1 mg. Medication reconciliation confirms the patient takes 2 mg qHS and an additional 1 mg up to three times daily as needed. The patient is unable to confirm the exact amount that she utilizes on average, however, her prescription refills do not allow for a total daily dose of 5 mg on a regular basis. Has done well with benzodiazepine weaning: Continue ativan to 0.25 mg scheduled every 8 hours for withdrawal prevention. She was allowed and additional 0.5 mg as needed every 8 hours for anxiety/ withdrawal symptoms; has not required as needed dosing. Recommend continued weaning. (7) EtOH dependence Is this a current diagnosis for this admission?: Yes Diagnosis Summary: The patient's daughter reports her mother has a history of alcoholism and continues to drink several liquor drinks daily. The patient was admitted approximately 3 days after her last known well; she has slight tremor and hypertension today which may possibly be EtOH withdrawal related. The patient has not evidenced any symptoms of alcohol withdrawal. Recommend continued multivitamin with iron, folate, and thiamine supplementation. (8) Constipation Is this a current diagnosis for this admission?: Yes Diagnosis Summary: Continue Colace and milk of magnesium as needed for constipation. Encourage increased fluid intake. Encouraged ambulation/mobility/position changes. (9) Chest pain Is this a current diagnosis for this admission?: Yes Diagnosis Summary: Resolved; likely noncardiac in nature, symptoms occurred shortly after taking a laxative. Patient relates the discomfort to indigestion. No concerning findings on EKG or cardiac telemetry. BMP, CBC, and troponins reassuring. Troponins are negative x5. Lipid panel is acceptable. Continue daily aspirin and statin therapy. Continue Prevacid. - Transfer Medications Home Medications: Azelastine/Fluticasone [Dymista Nasal [place]] 1 puff NASL BID 03/24/18 Clonidine HCl [Catapres 0.2 mg Tablet] 0.2 mg PO TIDP PRN 03/24/18 Cyclobenzaprine HCl [Flexeril 10 mg Tablet] 10 mg PO Q8HP PRN 03/24/18 Diclofenac Sodium/Misoprostol [Diclofenac-Misoprost 75-200 Tb] 1 tab PO TID Dicyclomine HCl [Bentyl 20 mg Tablet] 20 mg PO MEALS 03/24/18 Lorazepam [Ativan 1 mg Tablet] 1 mg PO TIDP PRN 03/24/18 Lorazepam [Ativan 1 mg Tablet] 2 mg PO QHS 03/24/18 Oxycodone HCl/Acetaminophen [Percocet 10-325 mg Tablet] 1 tab PO Q6HP PRN Phentermine HCl [Adipex-P] 37.5 mg PO BID 03/24/18 Rabeprazole Sodium [Aciphex] 20 mg PO DAILY 03/24/18 Tapentadol HCl [Nucynta ER] 100 mg PO Q12 03/24/18 Transfer Medications: Current Medications Albuterol/Ipratropium (Duoneb 3 Ml Ampul) 3 ml NEB RTQ8HP PRN PRN Reason: SHORTNESS OF BREATH Stop: 04/27/18 11:28 Aspirin (Aspirin 81 Mg Chewable Tablet) 81 mg PO DAILY [facility]ER Stop: 04/24/18 09:59 Last Admin: 03/28/18 10:28 Dose: 81 mg Atorvastatin Calcium (Lipitor 80 Mg Tablet) 80 mg PO QHS JENNIFER Stop: 04/22/18 21:59 Last Admin: 03/28/18 21:49 Dose: 80 mg Diltiazem HCl (Cardizem 60 Mg Tablet) 60 mg PO Q6 JENNIFER Stop: 04/24/18 11:59 Last Admin: 03/29/18 07:34 Dose: 60 mg Docusate Sodium (Colace 100 Mg Capsule) 100 mg PO BIDP PRN PRN Reason: FOR CONSTIPATION Stop: 04/22/18 21:26 Last Admin: 03/28/18 14:46 Dose: 100 mg Fluticasone Propionate (Flonase Nasal [place] 50 Mcg/[place] 16 Gm) 2 spray NASL DAILY [facility] Stop: 04/23/18 13:59 Last Admin: 03/28/18 10:29 Dose: 2 sprays Folic Acid (Folvite 1 Mg Tablet) 1 mg PO DAILY [facility] Stop: 04/25/18 09:59 Last Admin: 03/28/18 10:27 Dose: 1 mg Gabapentin (Neurontin 100 Mg Capsule) 100 mg PO QHS JENN[facility]ER Stop: 04/24/18 21:59 Last Admin: 03/28/18 21:48 Dose: 100 mg Hydralazine HCl (Apresoline Inj/Pf 20 Mg/1 Ml Sdv) 10 mg IV Q6HP PRN PRN Reason: SBP ABOVE 180 Stop: 04/24/18 06:21 Last Admin: 03/25/18 06:30 Dose: 10 mg Sodium Chloride (Nacl 0.9% 1000 Ml Iv Soln) 1,000 mls @ 125 mls/hr IV CONTINUOUS PRN PRN Reason: THIS MED IS NOT "PRN" Stop: 04/26/18 15:25 Last Admin: 03/28/18 20:14 Dose: 125 mls/hr Lansoprazole (Prevacid 30 Mg Odt Tablet) 30 mg PO Q6AM JENN[facility]ER Stop: 04/24/18 05:59 Last Admin: 03/29/18 07:34 Dose: 30 mg Lisinopril (Prinivil 5 Mg Tablet) 5 mg PO DAILY [facility] Stop: 04/25/18 09:59 Last Admin: 03/28/18 10:28 Dose: 5 mg Lorazepam (Ativan 0.5 Mg Tablet) 0.5 mg PO Q8HP PRN PRN Reason: ANXIETY/AGITATION Stop: 03/31/18 19:28 Lorazepam (Ativan 0.5 Mg Tablet) 0.25 mg PO Q8 JENN[facility]ER Stop: 04/03/18 13:59 Last Admin: 03/29/18 07:35 Dose: 0.25 mg Magnesium Hydroxide (Milk Of Magnesia 30 Ml Udcup) 30 ml PO HSP PRN PRN Reason: FOR CONSTIPATION Stop: 04/22/18 21:26 Last Admin: 03/28/18 10:36 Dose: 30 ml Metoprolol Tartrate (Lopressor Inj/Pf 5 Mg/5 Ml Sdv) 2.5 mg IV Q6HP PRN PRN Reason: hr >100 Stop: 04/22/18 21:29 Last Admin: 03/25/18 04:53 Dose: 2.5 mg Multivitamins/Iron (Flintstones Chewable Multivit W/Fe Tab) 2 tab PO DAILY [facility] Stop: 04/25/18 09:59 Last Admin: 03/28/18 10:28 Dose: 2 tab Oxycodone HCl (Oxycontin Sr 10 Mg Tablet) 10 mg PO Q12 [facility] Stop: 04/03/18 21:59 Last Admin: 03/28/18 21:48 Dose: 10 mg Oxycodone HCl (Oxy-Ir 5 Mg Tablet) 5 mg PO Q8HP PRN PRN Reason: FOR PAIN SCALE 3-5 Stop: 04/03/18 12:36 Fluticasone/Salmeterol (Advair 250-50 Diskus 14 Dose/Diskus) 1 inh IH Q12 JENNIFER Stop: 04/27/18 21:59 Last Admin: 03/28/18 21:49 Dose: 1 inh Sodium Chloride (Saline Flush 2.5 Ml Monoject Prefil Syrin) 2.5 ml IV Q8 JENN[facility]ER Stop: 04/22/18 21:59 Last Admin: 03/29/18 07:35 Dose: 2.5 ml Thiamine HCl (Thiamine 100 Mg Tablet) 100 mg PO DAILY [facility] Stop: 04/25/18 09:59 Last Admin: 03/28/18 10:28 Dose: 100 mg Tiotropium Henderson (Spiriva Handihaler 5 Cap/Kit (18 Mcg/Cap)) 1 cap IH DAILY [facility] Stop: 04/28/18 09:59 - Allergies Allergies/Adverse Reactions: Penicillins Allergy (Unknown, Verified 03/25/18 07:56) - Diet/Activity Discharge Diet: Cardiac Discharge Activity: Activity As Tolerated Hospital Course Hospital Course: H&P: SCOTTY MCLEOD is a 67 year old female with unclear past medical history who is found by neighbors on the ground with difficulty with speech, Facial droop, right arm and leg weakness, left arm and leg numbness. Her with dementia was found confused walking alone in the neighborhood. They are both brought to the emergency room. She is found to have persistent symptoms as above and atrial fibrillation with RVR. Initial imaging is unremarkable. Given the unclear time of onset she is not a candidate for thrombolytics and is referred to the hospitalist for admission. She denies history of palpitations, chest pain or shortness of breath. Additional history is limited secondary to severe expressive aphasia. Course: The patient was admitted for CVA; workup as above. Her mental status has rapidly improved and she now demonstrates only slight intermittent expressive aphasia and right-sided weakness that is noted to be worse when she is fatigued or stressed. Speech therapy has cleared her for regular consistency and liquid diet. PT/OT have evaluated the patient recommend acute rehab upon discharge. She was found to be in atrial fibrillation with RVR; rate control achieved with diltiazem. Blood pressure control achieved with diltiazem and lisinopril. Repeat imaging demonstrated conversion to hemorrhagic stroke. Neurosurgery was consulted; recommended holding anticoagulation and repeating imaging in 2 weeks. At that time if stable, may consider resuming anticoagulation. Based upon stroke and bleeding risk, conversation should be had with patient and family members with regard to resuming medication. It is recommended that she continue her daily aspirin therapy. [id number] score: 5 (7.2% yearly CVA risk) HAS-BLED score: 5 (9.1% yearly major bleed risk) Dr. Huerta at [facility] has graciously agreed to accept her for acute rehabilitation. At time of transfer, the patient is in stable condition. Physical Exam Vital Signs: Temp Pulse Resp BP Pulse Ox 98.8 F 82 20 159/67 H 94 03/29/18 07:26 03/29/18 07:26 03/29/18 07:26 03/29/18 07:26 03/29/18 07:26 Intake & Output 03/28/18 03/29/18 03/30/18 06:59 06:59 06:59 Intake Total 1510 2565 Balance 1510 2565 Weight 90.7 kg 91.4 kg General appearance: PRESENT: no acute distress, cooperative, well-developed, well-nourished - overweight Head exam: PRESENT: atraumatic, normocephalic Eye exam: PRESENT: conjunctiva pink, EOMI, PERRLA. ABSENT: scleral icterus Ear exam: PRESENT: normal external ear exam Mouth exam: PRESENT: moist, tongue midline Neck exam: ABSENT: carotid bruit, JVD, lymphadenopathy, thyromegaly Respiratory exam: PRESENT: clear to auscultation jose, symmetrical, unlabored. ABSENT: rales, rhonchi, wheezes Cardiovascular exam: PRESENT: irregular rhythm, +S1, +S2. ABSENT: diastolic murmur, rubs, systolic murmur Pulses: PRESENT: normal dorsalis pedis pul Vascular exam: PRESENT: normal capillary refill GI/Abdominal exam: PRESENT: normal bowel sounds, soft. ABSENT: distended, guarding, mass, organolmegaly, rebound, tenderness Rectal exam: PRESENT: deferred Extremities exam: PRESENT: full ROM. ABSENT: calf tenderness, clubbing, pedal edema Musculoskeletal exam: PRESENT: ambulatory - with front wheeled walker, tenderness - chronic neck pain Neurological exam: PRESENT: alert, awake, oriented to person, oriented to place , oriented to time, oriented to situation, CN II-XII grossly intact. ABSENT: motor sensory deficit Psychiatric exam: PRESENT: appropriate affect, normal mood. ABSENT: homicidal ideation, suicidal ideation Skin exam: PRESENT: dry, intact, warm. ABSENT: cyanosis, rash Results Laboratory Results: 03/29/18 04:20 03/27/18 14:20 03/29/18 04:20 WBC 11.9 H RBC 4.08 Hgb 12.2 Hct 36.8 MCV 90 MCH 29.9 MCHC 33.2 RDW 13.6 Plt Count 232 03/24/18 03/24/18 03/24/18 03:43 03:43 09:25 Creatine Kinase 135 157 H CK-MB (CK-2) 2.54 Troponin I < 0.012 03/24/18 03/27/18 09:25 14:20 Creatine Kinase CK-MB (CK-2) 2.74 Troponin I < 0.012 < 0.012 Impressions: Chest X-Ray 03/23/18 19:17 IMPRESSION: Cardiomegaly without pulmonary edema. Head CTA 03/23/18 20:01 IMPRESSION: There appears to be least partial occlusion of the left middle cerebral artery as described. Neck CTA 03/23/18 20:12 IMPRESSION: The left carotid artery appears to arise from the brachiocephalic trunk. No significant carotid occlusion is seen. Head MRI 03/25/18 00:00 IMPRESSION: Positive for acute or sub-acute infarction in the region of the left basal ganglia. Focal high-signal intensity lesions are present in the region of the left caudate nucleus, globus pallidus, and pituitary min with small internal areas of susceptibility artifact in the parenchyma as well as extending into the left lateral ventricle suggesting evidence of hemorrhage. Consider repeat noncontrast head CT to further assess. EVIDENCE OF ACUTE STROKE: YES. LEFT MCA. Head CT 03/27/18 08:00 IMPRESSION: 1. Stable parenchymal hemorrhage with associated cerebral edema. No progressive hydrocephalus or shift. No new areas of hemorrhage. EVIDENCE OF ACUTE STROKE: NO. Plan Discharge Plan: Transfer to [facility] for acute rehabilitation. Time Spent: Greater than 30 Minutes
[2018-03-29] MEDS: ATORVASTATIN CALCIUM 80 MG TABLET PO SCH (22:18)
[2018-03-29] MEDS: GABAPENTIN 100 MG CAPSULE PO SCH (22:18)
[2018-03-30] MEDS: DILTIAZEM HCL 60 MG TABLET PO SCH ×2 (00:35→05:50)
[2018-03-30] MEDS: OXYCODONE HCL IR 5 MG TABLET PO PRN (03:24)
[2018-03-30] MEDS: LORAZEPAM 0.5 MG TABLET PO SCH (05:48)
[2018-03-30] MEDS: LANSOPRAZOLE 30 MG TAB.RAP.DR PO SCH (05:50)
[2018-03-30 07:37] VITALS: BP 119/63
[2018-03-30] MEDS: ASPIRIN 81 MG TABLET, CHEWABLE PO SCH (09:16)
[2018-03-30] MEDS: MULTIVITAMINS W-IRON TABLET, CHEWABLE PO SCH (09:16)
[2018-03-30] MEDS: FLUTICASONE NASAL SPRAY 50 MCG/SPRY 120 SPRAY/16 GM NASL SCH (09:16)
[2018-03-30] MEDS: FLUTICASONE/SALMETEROL DISKUS 250-50 MCG/DOSE IH SCH (09:16)
[2018-03-30] MEDS: THIAMINE HCL 100 MG TABLET PO SCH (09:16)
[2018-03-30] MEDS: OXYCODONE HCL SR 10 MG TABLET PO SCH (09:16)
[2018-03-30] MEDS: FOLIC ACID 1 MG TABLET PO SCH (09:16)
[2018-03-30] MEDS: LISINOPRIL 5 MG TABLET PO SCH (09:16)
[2018-03-30] MEDS: TIOTROPIUM BROMIDE DPI 5 CAP/KIT (18 MCG/CAP) IH SCH (09:17)
[2018-03-30 10:32] LABS: HEMATOCRIT 38.7 % (36.0-47.0); HEMOGLOBIN 13.2 g/dL (12.0-15.5); MEAN CORPUSCULAR HEMOGLOBIN 30.5 pg (27.0-33.4); MEAN CORPUSCULAR HGB CONC 34.1 g/dL (32.0-36.0); MEAN CORPUSCULAR VOLUME 89 fl (80-97); PLATELET COUNT 359 10^3/uL (150-450); RED BLOOD COUNT 4.33 10^6/uL (3.72-5.28); RED CELL DISTRIBUTION WIDTH 13.2 % (11.5-14.0); WHITE BLOOD COUNT 12.4 10^3/uL (4.0-10.5)
== END 2018-03-30 10:30 | DRG 65 ==
LOC: ER 19:16 → EH 23:19 → 3W 03-24 02:49
PROVIDERS: ADMIT Internal Medicine; ATTEND Internal Medicine
DX: I63.412 Cerebral infarction due to embolism of left middle cerebral artery (principal); G81.91 Hemiplegia, unspecified affecting right dominant side; F11.20 Opioid dependence, uncomplicated; F10.29 Alcohol dependence with unspecified alcohol-induced disorder; I48.91 Unspecified atrial fibrillation; I10 Essential (primary) hypertension; R47.01 Aphasia; R29.810 Facial weakness; G89.29 Other chronic pain; K21.9 Gastro-esophageal reflux disease without esophagitis; K59.00 Constipation, unspecified; R07.9 Chest pain, unspecified
CPT/HCPCS: 36415; 70450; 70496; 70498; 70551; 71045; 80048; 80053; 80061; 81001; 82272; 82550; 82553; 83036; 84443; 84484; 85025; 85027; 85610; 85730; 90686; 93005; 93010; 93306; 96365; 96375; 99291; G8978-GP; G8979-GP; G8987-GO; G8988-GO; G9162-GN; G9163-GN; J0360; J1644; J3490

== ENCOUNTER → 2018-04-12 | Outpatient (CLI) | payer MEDICARE, OTHER ==
--- NOTE | 2018-04-12 16:16 | RADIOLOGY REPORT (SQ) ---
EXAM DESCRIPTION: CT HEAD WITHOUT COMPLETED DATE/TIME: 04/12/2018 2:24 pm REASON FOR STUDY: CEREBRAL INFARCTION, UNSPECIFIED I63.9 CEREBRAL INFARCTION, UNSPECIFIED COMPARISON: 03/27/2018 TECHNIQUE: Axial images acquired through the brain without intravenous contrast. Images reviewed wi th bone, brain and subdural windows. Additional sagittal and coronal reconstructions were generated. Images stored on PACS. All CT scanners at this facility use dose modulation, iterative reconstruction, and/or weight based d osing when appropriate to reduce radiation dose to as low as reasonably achievable (ALARA). [facility]: Dose Right [facility]: CareDose [facility]: Dose Right [facility]: Teradose 4D [facility]: Smart Bar Pass RADIATION DOSE: CT Rad equipment meets quality standard of care and radiation dose reduction techniq ues were employed. CTDIvol: 48.5 mGy. DLP: 903 mGy-cm. mGy. LIMITATIONS: None. FINDINGS: VENTRICLES: Normal size and contour. CEREBRUM: There is an area of decreased attenuation in the basal ganglia on the left extending up to left periventricular region. No recurrent or acute hemorrhage is appreciated. Normal fonseca/white richard er differentiation. No areas of low density in the white matter. CEREBELLUM: No masses. No hemorrhage. No alteration of density. No evidence for acute infarction. EXTRAAXIAL SPACES: No fluid collections. No masses. ORBITS AND GLOBE: No intra- or extraconal masses. Normal contour of globe without masses. CALVARIUM: No fracture. PARANASAL SINUSES: No fluid or mucosal thickening. SOFT TISSUES: No mass or hematoma. OTHER: No other significant finding. IMPRESSION: Recent deep white matter infarct on the left. No new hemorrhage is seen. EVIDENCE OF ACUTE STROKE: NO. COMMENT: Quality ID # [id number]: Final reports with documentation of one or more dose reduction techniques (e.g., Automated exposure control, adjustment of the mA and/or kV according to patient size, use of iterative reconstruction technique) TECHNICAL DOCUMENTATION: JOB ID: [id number] [employer]- All Rights Reserved Reading location - IP/workstation name: [email or web address]
== END ==
LOC: RAD 14:05
PROVIDERS: ATTEND Physical Medicine & Rehabilitation
DX: I62.9 Nontraumatic intracranial hemorrhage, unspecified (principal)
CPT/HCPCS: 70450

== ENCOUNTER → 2018-09-17 | Outpatient (CLI) | payer MEDICARE, OTHER ==
[2018-09-17 14:47] LABS: ABSOLUTE BASOPHILS # (AUTO) 0.1 10^3/uL (0.0-0.2); ABSOLUTE EOSINOPHILS # (AUTO) 0.3 10^3/uL (0.0-0.6); ABSOLUTE LYMPHOCYTES (AUTO) 2.4 10^3/uL (0.5-4.7); ABSOLUTE MONOCYTES (AUTO) 0.6 10^3/uL (0.1-1.4); ABSOLUTE NEUT (AUTO) 4.2 10^3/uL (1.7-8.2); EOSINOPHILS % (AUTO) 4.5 % (0-6); HEMOGLOBIN 13.4 g/dL (12.0-15.5); LYMPHOCYTES % (AUTO) 30.9 % (13-45); MEAN CORPUSCULAR HEMOGLOBIN 29.4 pg (27.0-33.4); MEAN CORPUSCULAR HGB CONC 34.3 g/dL (32.0-36.0); MEAN CORPUSCULAR VOLUME 86 fl (80-97); MONOCYTES % (AUTO) 8.4 % (3-13); PLATELET COUNT 269 10^3/uL (150-450); RED BLOOD COUNT 4.56 10^6/uL (3.72-5.28); RED CELL DISTRIBUTION WIDTH 13.9 % (11.5-14.0); SEGMENTED NEUTROPHILS % (AUTO) 55.2 % (42-78); TOTAL CELLS COUNTED % (AUTO) 100 %; WHITE BLOOD COUNT 7.7 10^3/uL (4.0-10.5)
[2018-09-17 15:07] LABS: ANION GAP 6 (5-19); BLOOD UREA NITROGEN 19 mg/dL (7-20); CALCIUM 9.6 mg/dL (8.4-10.2); CARBON DIOXIDE 28 mmol/L (22-30); CHLORIDE 104 mmol/L (98-107); CHOLESTEROL 144.44 mg/dL (0-200); GLUCOSE 85 mg/dL (75-110); POTASSIUM 4.4 mmol/L (3.6-5.0); SODIUM 138.1 mmol/L (137-145); TRIGLYCERIDES 114 mg/dL (<150)
[2018-09-17 15:17] LABS: DIRECT LDL 75 mg/dL (<100)
[2018-09-17 15:26] LABS: ERYTHROCYTE SEDIMENTATION RATE 24 mm/hr (0-30)
== END ==
LOC: OD 13:52
PROVIDERS: ATTEND Family Medicine
DX: H47.012 Ischemic optic neuropathy, left eye (principal); E78.2 Mixed hyperlipidemia; E87.6 Hypokalemia; I10 Essential (primary) hypertension; Z79.899 Other long term (current) drug therapy
CPT/HCPCS: 36415; 80048; 80061; 83036; 84443; 85025; 85652; 86140

== ENCOUNTER → 2019-07-21 | Outpatient (CLI) | payer MEDICARE, OTHER ==
--- NOTE | 2019-07-22 13:24 | RADIOLOGY REPORT (SQ) ---
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 Additional thin section axial and coronal T2, axial and coronal pre and postcontrast T1 weighted imag es through the orbits and optic nerves. Images stored on PACS. CONTRAST TYPE AND DOSE: 15 mL Dotarem. RENAL FUNCTION: Not indicated. ACR Type II contrast agent associated with few, if any, unconfounded cases of NSF LIMITATIONS: None. FINDINGS: ANATOMY: No developmental anomalies. Normal vascular flow voids. Pituitary fossa normal. CSF SPACES: Normal in size and contour. No hemorrhage. CEREBRUM: Encephalomalacia left lateral basal ganglia from remote prior infarct. No MR evidence of a cute ischemic change, acute intracranial hemorrhage, mass effect, or midline shift. POSTERIOR FOSSA: No signal alteration. No hemorrhage. No edema, masses, or mass effect. Internal braden tory canals, cerebellopontine angles, mastoids normal. No enhancing lesions. No abnormal enhancement post contrast. DIFFUSION IMAGING: Negative for acute or subacute infarction. ORBITS: No masses. Globes post cataract surgery. No masses or enhancement along the right or left op tic nerve. Coronal postcontrast T1 weighted images demonstrate no intraconal orbital inflammatory ch lokesh or mass. PARANASAL SINUSES: No fluid levels. Mucosa normal. OTHER: Gradient echo T2 weighted images demonstrate hemosiderin staining along the left lateral basal ganglia infarct. IMPRESSION: Old left lateral basal ganglia infarct No abnormal masses or enhancement along the right or left optic nerve. No intraconal orbital inflamm atory change. EVIDENCE OF ACUTE STROKE: NO. TECHNICAL DOCUMENTATION: JOB ID: [id number] [employer]- All Rights Reserved Reading location - IP/workstation name: [email or web address]
== END ==
LOC: RAD 16:14
PROVIDERS: ATTEND Ophthalmology
DX: H47.012 Ischemic optic neuropathy, left eye (principal); H46.9 Unspecified optic neuritis
CPT/HCPCS: 82565; 70553; A9576

== ENCOUNTER → 2019-07-21 | Outpatient (CLI) | payer MEDICARE, OTHER ==
[2019-07-21 16:39] LABS: ABSOLUTE BASOPHILS # (AUTO) 0.1 10^3/uL (0.0-0.2); ABSOLUTE EOSINOPHILS # (AUTO) 0.2 10^3/uL (0.0-0.6); ABSOLUTE LYMPHOCYTES (AUTO) 3.3 10^3/uL (0.5-4.7); ABSOLUTE MONOCYTES (AUTO) 0.8 10^3/uL (0.1-1.4); BASOPHILS % (AUTO) 0.8 % (0-2); EOSINOPHILS % (AUTO) 1.9 % (0-6); HEMATOCRIT 42.4 % (36.0-47.0); HEMOGLOBIN 14.6 g/dL (12.0-15.5); LYMPHOCYTES % (AUTO) 31.5 % (13-45); MEAN CORPUSCULAR HEMOGLOBIN 29.6 pg (27.0-33.4); MEAN CORPUSCULAR HGB CONC 34.3 g/dL (32.0-36.0); MEAN CORPUSCULAR VOLUME 86 fl (80-97); PLATELET COUNT 308 10^3/uL (150-450); RED BLOOD COUNT 4.92 10^6/uL (3.72-5.28); RED CELL DISTRIBUTION WIDTH 13.4 % (11.5-14.0); SEGMENTED NEUTROPHILS % (AUTO) 57.8 % (42-78); TOTAL CELLS COUNTED % (AUTO) 100 %; WHITE BLOOD COUNT 10.4 10^3/uL (4.0-10.5)
[2019-07-21 17:24] LABS: ERYTHROCYTE SEDIMENTATION RATE 28 mm/hr (0-30)
== END ==
LOC: OD 16:00
PROVIDERS: ATTEND Ophthalmology
DX: H47.012 Ischemic optic neuropathy, left eye (principal); H46.9 Unspecified optic neuritis
CPT/HCPCS: 36415; 82607; 85025; 85652; 86140

== ENCOUNTER → 2019-07-25 | Outpatient (CLI) | payer MEDICARE, OTHER | LOC: CCC 10:01 | PROVIDERS: ATTEND Ophthalmology | DX: H47.012 Ischemic optic neuropathy, left eye (principal); Z53.8 Procedure and treatment not carried out for other reasons ==